=== PATIENT | male | born 1950 | race Caucasian/White ===

== ENCOUNTER → 2016-07-11 | Outpatient (CLI) | payer OTHER ==
[~2016-07-11] MED LIST: ALBU1AER9 INH; ALL180 PO; ASMTWH INH; ATOR10TA88 PO; BYS/5 PO; DABI150C PO; GABA-113 PO; GLUC1TAB44 PO; MONT1TAB3 PO; PRT/20 PO
== END | disposition home or self-care (01) ==
LOC: C.RDSM 12:33
PROVIDERS: ATTEND Physical Medicine & Rehabilitation Sports Medicine
DX: M25.562 Pain in left knee (principal)

== ENCOUNTER → 2016-08-01 | Outpatient (CLI) | payer OTHER | END | disposition home or self-care (01) | LOC: C.RDSM 08:20 | PROVIDERS: ATTEND Physical Medicine & Rehabilitation Sports Medicine | DX: T84.84XA Pain due to internal orthopedic prosthetic devices, implants and grafts, initial encounter (principal); Z96.649 Presence of unspecified artificial hip joint; Y79.2 Prosthetic and other implants, materials and accessory orthopedic devices associated with adverse incidents ==

== ENCOUNTER → 2017-05-01 | Outpatient (CLI) | payer OTHER ==
[~2017-05-01] MED LIST changes: +ATOR10TA82 PO; -ATOR10TA88 PO
--- NOTE | 2017-05-01 16:23 | DIAGNOSTIC IMAGING REPORT ---
CHEST 2 VIEWS ROUTINE HISTORY: 67 years-old Male ASTHMA acute asthma and cough for 6 weeks COMPARISON: Chest radiograph 03/28/2006 TECHNIQUE: PA and lateral views of the chest FINDINGS: Cardiomediastinal and hilar silhouettes are within normal limits. There is no pneumothorax or pleural effusion. Alveolar opacities of the medial basal right lower lobe are noted. The bones appear grossly intact. There are degenerative changes of the spine and shoulders. IMPRESSION: Alveolar opacities of the medial basal right lower lobe suggest pneumonia in the appropriate clinical setting. Follow-up recommended. The above report was generated using voice recognition software. It may contain grammatical, syntax or spelling errors. Electronically signed by: Brayan Velez M.D. 05/01/2017 4:22 PM Dictated Date/Time: 05/01/2017 4:20 PM
== END | disposition home or self-care (01) ==
LOC: C.RAD1850 16:06
PROVIDERS: ATTEND Family Medicine
DX: J45.909 Unspecified asthma, uncomplicated (principal); R05 Cough; R91.8 Other nonspecific abnormal finding of lung field

== ENCOUNTER → 2017-07-10 | Outpatient (CLI) | payer OTHER | END | disposition home or self-care (01) | LOC: C.RDSM 12:05 | PROVIDERS: ATTEND Physical Medicine & Rehabilitation Sports Medicine | DX: Z96.651 Presence of right artificial knee joint (principal) ==

== ENCOUNTER 2020-11-09 17:38 | Inpatient (IN) ==
--- NOTE | 2020-11-09 17:58 | CT Scan Report ---
CT SCAN OF THE BRAIN WITHOUT IV CONTRAST CLINICAL HISTORY: Strokelike symptoms. COMPARISON STUDY: CT of the brain dated 05/02/2012. TECHNIQUE: Unenhanced axial CT scan of the brain is performed from the vertex to the skull base. A d ose lowering technique was utilized adhering to the principles of ALARA. CT DOSE: 994.86 mGycm FINDINGS: Brain parenchyma: There is mild age-related involutional change. A small focus of high right frontopa rietal encephalomalacia is consistent with a remote insult. There is no hemorrhage, mass effect, or e vidence of acute territorial ischemia by CT criteria. Soto-white matter differentiation is preserved. No extra-axial fluid collection is seen. Ventricles, sulci, cisterns: Prominent secondary to involutional change. Intracranial vasculature: There is mild atherosclerotic calcification of the cavernous carotid arteri es. Calvarium: Unremarkable. Sinuses and mastoids: There is evidence of previous paranasal sinus surgery. There is complete opacif ication of the left sphenoid sinus, with moderate mucosal thickening in the right sphenoid sinus. Thi ckening and sclerosis of the sinus hoffman indicates chronicity. There is mild mucosal thickening withi n the ethmoid resection cavities, the frontal sinuses, and the maxillary antra. The mastoid air cells are well pneumatized. Orbits: The bony orbits are grossly intact. IMPRESSION: There is no hemorrhage, mass effect, or evidence of acute territorial ischemia by CT liban vazquez. ACT 112: Negative or not required by law. Electronically signed by: Gamaliel Friedman M.D. 11/09/2020 5:56 PM
[2020-11-09 18:05] LABS: Hematocrit (blood only) 44.4 % (42-52); Hemoglobin 15.2 g/dL (14.0-18.0); Mean Corpuscular Hemoglobin 30.3 pg (25-34); Mean Corpuscular Hgb Conc 34.2 g/dL (32-36); Mean Corpuscular Volume 88.4 fL (80-100); Mean Platelet Volume 10.9 fL (7.4-10.4); Platelet Count 176 K/uL (130-400); RDW Coefficient of Variation 13.4 % (11.5-14.5); RDW Standard Deviation 43.2 fL (36.4-46.3); Red Blood Count 5.02 M/uL (4.7-6.1); White Blood Count 8.68 K/uL (4.8-10.8)
--- NOTE | 2020-11-09 18:14 | XRay Report ---
SINGLE VIEW CHEST CLINICAL HISTORY: Strokelike symptoms. Visual changes. FINDINGS: An AP, portable, upright chest radiograph is compared to study dated 05/28/2019. The cardio mediastinal heart is mildly enlarged. There is pulmonary vascular congestion. No airspace consolidati on or large pleural effusion is identified. No pneumothorax is seen. The bony thorax is grossly intac t. IMPRESSION: 1. Cardiomegaly with mild pulmonary vascular congestion. 2. No airspace consolidation or large pleural effusion is identified. ACT 112: Negative or not required by law. Electronically signed by: Gamaliel Friedman M.D. 11/09/2020 6:13 PM
--- NOTE | 2020-11-09 18:14 | Emergency Department Note ---
Impression & Plan Hemianopsia, Atrial fibrillation, Bradycardia, Stroke ED Provider Note Provider: Mp Valdez MD DATE OF SERVICE: 11/09/2020 CHIEF COMPLAINT: Visual changes HISTORY OF PRESENT ILLNESS: Patient is a 70-year-old gentleman with a history of atrial fibrillation status post ablation on epigastrium as well as hypertension presenting here today stating around 5:10 PM this evening at the sudden onset of right-sided visual loss in both eyes. Denies any headache or dizziness. Denies any numbness or weakness in the extremities. Denies any difficulty speaking or aphasia type symptoms. Patient states she is a history distantly several years ago of somewhat similar TIA that was very brief and resolved. States he has been taking his anticoagulation, Pradaxa, and last took it this morning he reports. States he noticed this visual change immediately and came here to the ER. Was made a stroke alert from triage. Denies any falls or trauma. Denies any chest pain shortness of breath or abdominal discomfort. Patient is not on aspirin. REVIEW OF SYSTEMS: A total of 10 review of systems was obtained and negative except as stated above in the HPI. PAST MEDICAL HISTORY: As noted above MEDICATIONS: Reviewed home medication list SOCIAL HISTORY: and lives at home PHYSICAL EXAM: GENERAL: alert and oriented in no acute distress on stretcher Head: normocephalic and atraumatic EYES: No injection, discharge or icterus. PERRL, EOMI. Patient with right hemianopsia (includes both upper and lower right-sided leon in both eyes) NECK: Trachea midline. Supple. ENT: Mucous membranes pink and moist. Pharynx without erythema or exudate. LUNGS: Airway patent. No retractions. Breath sounds clear with good air entry bilaterally. HEART: Regular rate and rhythm. No chest wall tenderness ABDOMEN: Soft and non-tender, without guarding or rebound. SKIN: Acyanotic, warm, dry, without rashes EXTREMITIES: Without swelling, tenderness or deformity NEUROLOGICAL: No focal deficits. No aphasia. No facial droop or slurred speech. Normal strength and tone in the extremities. Sensation to gross touch normal. Ambulatory. Right-sided visual loss in both eyes as above EK bpm atrial fibrillation with slow ventricular response. No acute ST segment elevation noted with lateral T wave inversions. QTc 436. Similar to previous from December 05, 2019 although appears more fibrillation today than flutter. CONTINUOUS CARDIAC MONITORING: was ordered and showed a heart rate of 30s to 40s bpm in atrial fibrillation with slow ventricular response Patient's laboratory studies and imaging reviewed. Differential includes Infection, dehydration, metabolic abnormality, hypo/hyperglycemia, electrolyte disturbance, anemia, hypoxia, cardiac sources, intracerebral event, toxicologic, neurologic, as well as other pathologies. IMPRESSION/MEDICAL DECISION MAKING: Patient with sudden onset of bilateral right-sided visual loss. No other significant findings. Do not believe is ophthalmologic less that involves both eyes. Extraocular motions appear intact. Not having aphasia. Patient is on anticoagulation with Pradaxa thus contraindicated to TPA. CTA will complete and look for a large vessel occlusion but I doubt given his exam at this time an LVO. Patient with no other significant findings in the upper or lower extremities. EKG shows bradycardic rate controlled A. fib which he states is normal for him and EKG without significant acute ischemic changes compared to previous. Patient denies any chest pain or shortness of breath. Blood work without significant abnormalities beyond a mildly elevated troponin but again the patient is not having active chest pain. Patient is hypertensive here likely related to probable stroke. Question of the troponin is chronically elevated but did not have recent baseline for comparison. CTA with 50% ICA stenosis but no other significant findings. Question of possible embolic finding from his history of A. fib although he has been on Pradaxa. Discussed with the patient and family members further observation here at the hospital and they are in agreement. The hospitalist was contacted. Discussed with Dr. Santos at [facility] and given an oral dose of aspirin for antiplatelet coverage. DIAGNOSIS: Hemianopsia, stroke, bradycardia, atrial fibrillation DISPOSITION: Hospitalist will evaluate Patient was agreeable with this plan. Past Med/Surg History Medical History (Updated 11/10/20 @ 01:31 by Mp Valdez M.D.) Asthma Atrial fibrillation Chronic back pain GERD (gastroesophageal reflux disease) History of cardioversion "SEVERAL" (FOLLOWS WITH DR. SHAW) Hyperlipidemia Hypertension Osteoarthritis Transient ischemic attack (TIA) 2009 Surgical History History of adenoidectomy History of cardiac radiofrequency ablation X 4 (LAST PROCEDURE AT [facility] 2009) History of colonoscopy History of endoscopic sinus surgery X 2 History of nasal septoplasty History of tonsillectomy History of tooth extraction History of total hip arthroplasty LEFT History of total knee replacement RT Family History Other No significant family history Social History Smoking Status: Never smoker Second Hand Exposure: No; Hx Alcohol Use: Yes Alcohol type: wine Hx Substance Use: No Preferred Language: Armenian Communication Ability: Effective Watch Assembly Instructor Required: No Beliefs That Will Affect Care: None Current Living Situation: Spouse Other Information That Helps Us Care for You: No Feels Safe at Home: Yes Safety Concerns: Feels Safe At This Time Assistive Devices: Hearing Aid - Bilateral Allergies Allergies Allergy/AdvReac Type Severity Reaction Status Date / Time No Known Allergies Allergy Verified 11/09/20 18:29 Home Meds Home Medications Medication Instructions Recorded Confirmed albuterol sulfate [ProAir HFA] 2 puff INHALATION QID PRN 12/25/18 11/09/20 atorvastatin [Lipitor] 10 mg PO HS 12/25/18 11/09/20 fexofenadine 180 mg PO QAM 12/25/18 11/09/20 Cbd Gummy 1 tab PO BID 02/20/20 11/09/20 amlodipine 2.5 mg PO DAILY 11/09/20 11/09/20 fluticasone propion-salmeterol 1 ea INHALATION UD PRN 11/09/20 11/09/20 [Advair Diskus] lisinopril 40 mg PO DAILY 11/09/20 11/09/20 Previous Rx's Medication Instructions Recorded dabigatran etexilate 150 mg capsule 150 mg PO BID #180 cap 12/12/19 Results & Data (ED) Vital Signs Vital Signs - 24 hr 11/09/20 17:40 11/09/20 18:00 11/09/20 18:02 Temperature 36.6 C Temperature Source Temporal Artery Scan Pulse Rate 43 L 40 L 41 L Pulse Rate from SpO2 Sensor Respiratory Rate 16 18 19 Respiratory Effort / Characteristics Non-Labored Respiratory Depth Normal Blood Pressure 195/85 H Blood Pressure Mean 121 Pulse Oximetry 97 100 Oxygen Delivery Method Room Air Room Air Sepsis Recent Fever Within 48 Hours No Sepsis New/Unexplained Change in Mental Status No Sepsis Action Taken by Nursing No Action Required 11/09/20 18:04 11/09/20 18:15 11/09/20 18:30 Temperature Temperature Source Pulse Rate 43 L 34 L 40 L Pulse Rate from SpO2 Sensor Respiratory Rate 17 18 16 Respiratory Effort / Characteristics Respiratory Depth Blood Pressure 174/95 H 183/86 H 171/82 H Blood Pressure Mean 121 118 111 Pulse Oximetry 96 96 Oxygen Delivery Method Sepsis Recent Fever Within 48 Hours Sepsis New/Unexplained Change in Mental Status Sepsis Action Taken by Nursing 11/09/20 18:47 11/09/20 19:00 11/09/20 19:01 Temperature Temperature Source Pulse Rate 44 L 42 L 40 L Pulse Rate from SpO2 Sensor 45 L 42 L 39 L Respiratory Rate 17 21 19 Respiratory Effort / Characteristics Respiratory Depth Blood Pressure 175/92 H 187/103 H Blood Pressure Mean 119 131 Pulse Oximetry 97 98 98 Oxygen Delivery Method Sepsis Recent Fever Within 48 Hours Sepsis New/Unexplained Change in Mental Status Sepsis Action Taken by Nursing 11/09/20 19:42 11/09/20 19:47 11/09/20 20:00 Temperature Temperature Source Pulse Rate 40 L 41 L 39 L Pulse Rate from SpO2 Sensor 41 L 43 L 40 L Respiratory Rate 14 17 20 Respiratory Effort / Characteristics Respiratory Depth Blood Pressure 190/117 H Blood Pressure Mean 141 Pulse Oximetry 99 98 98 Oxygen Delivery Method Sepsis Recent Fever Within 48 Hours Sepsis New/Unexplained Change in Mental Status Sepsis Action Taken by Nursing 11/09/20 20:12 11/09/20 20:14 11/09/20 20:16 Temperature Temperature Source Pulse Rate 40 L 46 L 47 L Pulse Rate from SpO2 Sensor 41 L 45 L 43 L Respiratory Rate 20 18 20 Respiratory Effort / Characteristics Respiratory Depth Blood Pressure 189/101 H 199/89 H 190/92 H Blood Pressure Mean 130 125 124 Pulse Oximetry 99 97 97 Oxygen Delivery Method Sepsis Recent Fever Within 48 Hours Sepsis New/Unexplained Change in Mental Status Sepsis Action Taken by Nursing 11/09/20 20:30 11/09/20 20:31 11/09/20 20:42 Temperature Temperature Source Pulse Rate 38 L 39 L 40 L Pulse Rate from SpO2 Sensor 41 L 40 L 43 L Respiratory Rate 13 20 17 Respiratory Effort / Characteristics Respiratory Depth Blood Pressure 200/90 H 181/93 H Blood Pressure Mean 126 122 Pulse Oximetry 96 97 98 Oxygen Delivery Method Sepsis Recent Fever Within 48 Hours Sepsis New/Unexplained Change in Mental Status Sepsis Action Taken by Nursing Laboratory Data Result diagrams: 11/09/20 17:58 11/09/20 17:58 Lab Results 11/09/20 11/09/20 11/09/20 Range/Units 17:57 17:58 17:58 WBC 8.68 (4.8-10.8) K/uL RBC 5.02 (4.7-6.1) M/uL Hgb 15.2 (14.0-18.0) g/dL Hct 44.4 (42-52) % MCV 88.4 (80-100) fL MCH 30.3 (25-34) pg MCHC 34.2 (32-36) g/dL RDW Std Deviation 43.2 (36.4-46.3) fL RDW Coeff of Castro 13.4 (11.5-14.5) % Plt Count 176 (130-400) K/uL MPV 10.9 H (7.4-10.4) fL PT 11.1 (9.0-12.0) Seconds INR 1.1 (0.9-1.1) APTT 36.5 H (21.0-31.0) Seconds PTT Ratio 1.4 Sodium (136-145) mmol/L Potassium (3.5-5.1) mmol/L Chloride (98-107) mmol/L Carbon Dioxide (21-32) mmol/L Anion Gap (3-11) BUN (7-18) mg/dl Creatinine (0.6-1.4) mg/dl Est Cr Clr Drug Dosing ml/min Est GFR ( Amer) ml/min Est GFR (Non-Af Amer) ml/min BUN/Creatinine Ratio (10-20) Glucose (70-99) mg/dl POC Glucose 96 (70-99) mg/dl Calcium (8.5-10.1) mg/dl Magnesium (1.8-2.4) mg/dl Total Bilirubin (0.2-1) mg/dl AST (15-37) U/L ALT (12-78) U/L Alkaline Phosphatase (45-117) U/L Total Protein (6.4-8.2) gm/dl Albumin (3.4-5.0) gm/dl Globulin (2.5-4.0) gm/dl Albumin/Globulin Ratio (0.9-2) COVID-19 Eval Order SARS-CoV-2 (PCR) (Negative) 11/09/20 11/09/20 11/09/20 Range/Units 17:58 18:18 18:18 WBC (4.8-10.8) K/uL RBC (4.7-6.1) M/uL Hgb (14.0-18.0) g/dL Hct (42-52) % MCV (80-100) fL MCH (25-34) pg MCHC (32-36) g/dL RDW Std Deviation (36.4-46.3) fL RDW Coeff of Castro (11.5-14.5) % Plt Count (130-400) K/uL MPV (7.4-10.4) fL PT (9.0-12.0) Seconds INR (0.9-1.1) APTT (21.0-31.0) Seconds PTT Ratio Sodium 141 (136-145) mmol/L Potassium 4.1 (3.5-5.1) mmol/L Chloride 109 H (98-107) mmol/L Carbon Dioxide 26 (21-32) mmol/L Anion Gap 6.0 (3-11) BUN 18 (7-18) mg/dl Creatinine 1.09 (0.6-1.4) mg/dl Est Cr Clr Drug Dosing 76.0 ml/min Est GFR ( Amer) 79.8 ml/min Est GFR (Non-Af Amer) 68.9 ml/min BUN/Creatinine Ratio 16.7 (10-20) Glucose 85 (70-99) mg/dl POC Glucose (70-99) mg/dl Calcium 8.6 (8.5-10.1) mg/dl Magnesium 2.4 (1.8-2.4) mg/dl Total Bilirubin 1.1 H (0.2-1) mg/dl AST 32 (15-37) U/L ALT 39 (12-78) U/L Alkaline Phosphatase 112 (45-117) U/L Total Protein 7.5 (6.4-8.2) gm/dl Albumin 3.8 (3.4-5.0) gm/dl Globulin 3.7 (2.5-4.0) gm/dl Albumin/Globulin Ratio 1.0 (0.9-2) COVID-19 Eval Order Covid19 at [facility] SARS-CoV-2 (PCR) NEGATIVE (Negative) Administered Medications Atorvastatin Calcium (Atorvastatin 40 Mg Tab) 80 mg PO HS FLEX Stop: 12/09/20 23:02 Last Admin: 11/09/20 23:47 Dose: 80 mg Documented by: [id number] Discontinued Medications Aspirin (Aspirin 81 Mg Chew) 324 mg PO NOW STA Stop: 11/09/20 18:56 Last Admin: 11/09/20 19:07 Dose: 324 mg Documented by: [id number] Ioversol (Optiray 350 500ml) 110 ml IV ONCE ONE Stop: 11/09/20 19:35 Last Admin: 11/09/20 19:34 Dose: 110 ml Documented by: [id number] Imaging Data Radiologist's Impression: Chest X-Ray 11/09/20 17:44 SINGLE VIEW CHEST CLINICAL HISTORY: Strokelike symptoms. Visual changes. FINDINGS: An AP, portable, upright chest radiograph is compared to study dated 05/28/2019. The cardiomediastinal heart is mildly enlarged. There is pulmonary vascular congestion. No airspace consolidation or large pleural effusion is identified. No pneumothorax is seen. The bony thorax is grossly intact. IMPRESSION: 1. Cardiomegaly with mild pulmonary vascular congestion. 2. No airspace consolidation or large pleural effusion is identified. ACT 112: Negative or not required by law. Electronically signed by: Gamaliel Friedman M.D. 11/09/2020 6:[address] 11/09/20 17:44 CT SCAN OF THE BRAIN WITHOUT IV CONTRAST CLINICAL HISTORY: Strokelike symptoms. COMPARISON STUDY: CT of the brain dated 05/02/2012. TECHNIQUE: Unenhanced axial CT scan of the brain is performed from the vertex to the skull base. A dose lowering technique was utilized adhering to the principles of ALARA. CT DOSE: 994.86 mGycm FINDINGS: Brain parenchyma: There is mild age-related involutional change. A small focus of high right frontoparietal encephalomalacia is consistent with a remote insult. There is no hemorrhage, mass effect, or evidence of acute territorial ischemia by CT criteria. Soto-white matter differentiation is preserved. No extra-axial fluid collection is seen. Ventricles, sulci, cisterns: Prominent secondary to involutional change. Intracranial vasculature: There is mild atherosclerotic calcification of the cavernous carotid arteries. Calvarium: Unremarkable. Sinuses and mastoids: There is evidence of previous paranasal sinus surgery. There is complete opacification of the left sphenoid sinus, with moderate mucosal thickening in the right sphenoid sinus. Thickening and sclerosis of the sinus hoffman indicates chronicity. There is mild mucosal thickening within the ethmoid resection cavities, the frontal sinuses, and the maxillary antra. The mastoid air cells are well pneumatized. Orbits: The bony orbits are grossly intact. IMPRESSION: There is no hemorrhage, mass effect, or evidence of acute territorial ischemia by CT criteria. ACT 112: Negative or not required by law. Electronically signed by: Gamaliel Friedman M.D. 11/09/2020 5:56 PM Head CTA 11/09/20 18:01 CT ANGIOGRAM OF THE BRAIN; CT ANGIOGRAM OF THE NECK CLINICAL HISTORY: Right-sided visual field loss. COMPARISON STUDY: Unenhanced CT of the brain performed the same day 11/09/2020. TECHNIQUE: Following the IV administration of 110 of Optiray 350, CT angiogram of the head and neck was performed from the aortic arch to the vertex. Images are reviewed in the axial, sagittal, and coronal planes. 3-D MIPS images are created and assessed. IV contrast was administered without complication. All measurements were calculated based on NASCET criteria. A dose lowering technique was utilized adhering to the principles of ALARA. CT DOSE: 630.23 mGy.cm FINDINGS: Brain parenchyma: There is age-related involutional change. A small focus of high right frontoparietal encephalomalacia is consistent with a remote insult. There is no hemorrhage, mass effect, or evidence of acute territorial ischemia by CT criteria. There is no evidence of enhancing mass lesion on the angiogram phase images. The ventricles, sulci, and cisterns are prominent secondary to involutional change. Soto-white matter differentiation is preserved. No extra- axial fluid collection is seen. Thoracic aorta: Visualized portions of the thoracic aorta are normal in caliber. The aortic arch demonstrates standard 3-vessel anatomy. Right carotid arterial system: The right common carotid artery is widely patent, as are the right internal and Carotid arteries. Atherosclerotic plaque is noted in the carotid bulb. Left carotid arterial system: The left common carotid artery is widely patent. Plaque in the carotid bulb causes less than 50% stenosis at the origin of the left internal carotid artery. There is atherosclerotic irregularity throughout the left internal carotid artery which is otherwise widely patent. The left external carotid artery is clear. Vertebral arteries: The vertebral arteries are widely patent and codominant. Subclavian arteries: Widely patent bilaterally. Intracranial vasculature: The internal carotid arteries are patent at the skull base, as are the anterior and middle cerebral arteries bilaterally. The vertebrobasilar system and posterior cerebral arteries are widely patent. The vertebral arteries are codominant. There is no aneurysm, high-grade stenosis, or focal vessel cut off seen throughout the intracranial circulation. Jugular veins: Patent bilaterally. Dural sinuses: Patent. Lung apices: Partially visualized upper lobe lung parenchyma appears clear. Soft tissues: The visualized pharyngeal soft tissues are normal in appearance noting angiographic phase technique. The oropharyngeal airway appears widely patent. The salivary and thyroid glands are normal in appearance. No cervical lymphadenopathy is seen. Skeletal structures: The skeletal structures are osteopenic. The calvarium appears intact. The cervical spine is maintained noting multilevel spondylosis. No lytic or blastic lesion is seen. Orbits: The bony orbits are intact. Orbital contents are normal as visualized. Sinuses and mastoids: There is evidence of previous paranasal sinus surgery. There is complete opacification of the left sphenoid sinus, with moderate mucosal thickening in the right sphenoid sinus. Thickening and sclerosis of the sinus hoffman indicates chronicity. There is mild mucosal thickening within the ethmoid resection cavities, the frontal sinuses, and the maxillary antra. The mastoid air cells are well pneumatized. IMPRESSION: 1. There is no evidence of hemorrhage, mass effect, or acute territorial ischemia by CT criteria noting angiographic phase technique. 2. Unremarkable CT angiogram of the brain. 3. Atherosclerotic plaque causes less than 50% stenosis at the origin of the left internal carotid artery. 4. Otherwise unremarkable CT angiogram of the neck. ACT 112: Negative or not required by law. Electronically signed by: Gamaliel Friedman M.D. 11/09/2020 8:02 PM Neck CTA 11/09/20 18:01 CT ANGIOGRAM OF THE BRAIN; CT ANGIOGRAM OF THE NECK CLINICAL HISTORY: Right-sided visual field loss. COMPARISON STUDY: Unenhanced CT of the brain performed the same day 11/09/2020. TECHNIQUE: Following the IV administration of 110 of Optiray 350, CT angiogram of the head and neck was performed from the aortic arch to the vertex. Images are reviewed in the axial, sagittal, and coronal planes. 3-D MIPS images are created and assessed. IV contrast was administered without complication. All measurements were calculated based on NASCET criteria. A dose lowering technique was utilized adhering to the principles of ALARA. CT DOSE: 630.23 mGy.cm FINDINGS: Brain parenchyma: There is age-related involutional change. A small focus of high right frontoparietal encephalomalacia is consistent with a remote insult. There is no hemorrhage, mass effect, or evidence of acute territorial ischemia by CT criteria. There is no evidence of enhancing mass lesion on the angiogram phase images. The ventricles, sulci, and cisterns are prominent secondary to involutional change. Soto-white matter differentiation is preserved. No extra- axial fluid collection is seen. Thoracic aorta: Visualized portions of the thoracic aorta are normal in caliber. The aortic arch demonstrates standard 3-vessel anatomy. Right carotid arterial system: The right common carotid artery is widely patent, as are the right internal and Carotid arteries. Atherosclerotic plaque is noted in the carotid bulb. Left carotid arterial system: The left common carotid artery is widely patent. Plaque in the carotid bulb causes less than 50% stenosis at the origin of the left internal carotid artery. There is atherosclerotic irregularity throughout the left internal carotid artery which is otherwise widely patent. The left external carotid artery is clear. Vertebral arteries: The vertebral arteries are widely patent and codominant. Subclavian arteries: Widely patent bilaterally. Intracranial vasculature: The internal carotid arteries are patent at the skull base, as are the anterior and middle cerebral arteries bilaterally. The vertebrobasilar system and posterior cerebral arteries are widely patent. The vertebral arteries are codominant. There is no aneurysm, high-grade stenosis, or focal vessel cut off seen throughout the intracranial circulation. Jugular veins: Patent bilaterally. Dural sinuses: Patent. Lung apices: Partially visualized upper lobe lung parenchyma appears clear. Soft tissues: The visualized pharyngeal soft tissues are normal in appearance noting angiographic phase technique. The oropharyngeal airway appears widely patent. The salivary and thyroid glands are normal in appearance. No cervical l ymphadenopathy is seen. Skeletal structures: The skeletal structures are osteopenic. The calvarium appears intact. The cervical spine is maintained noting multilevel spondylosis. No lytic or blastic lesion is seen. Orbits: The bony orbits are intact. Orbital contents are normal as visualized. Sinuses and mastoids: There is evidence of previous paranasal sinus surgery. There is complete opacification of the left sphenoid sinus, with moderate mucosal thickening in the right sphenoid sinus. Thickening and sclerosis of the sinus hoffman indicates chronicity. There is mild mucosal thickening within the ethmoid resection cavities, the frontal sinuses, and the maxillary antra. The mastoid air cells are well pneumatized. IMPRESSION: 1. There is no evidence of hemorrhage, mass effect, or acute territorial ischemia by CT criteria noting angiographic phase technique. 2. Unremarkable CT angiogram of the brain. 3. Atherosclerotic plaque causes less than 50% stenosis at the origin of the left internal carotid artery. 4. Otherwise unremarkable CT angiogram of the neck. ACT 112: Negative or not required by law. Electronically signed by: Gamaliel Friedman M.D. 11/09/2020 8:02 PM Discharge Plan Visit Data Chief Complaint: Visual Disturbance Stated Complaint: CAN'T SEE R SIDE VISION, NAUSEA ED Provider: Mp Valdez Discharge Problem: Hemianopsia, Atrial fibrillation, Bradycardia, Stroke Patient Disposition: Admitted As Inpatient Discharge Instructions Interventions: ED Discharge Assessment Last Done: 11/09/20 22:20 Discharge Problem: Atrial fibrillation Qualifiers: Atrial fibrillation type: unspecified chronic Qualified Code(s): I48.20 - Chronic atrial fibrillation, unspecified Stroke Qualifiers: CVA mechanism: unspecified Qualified Code(s): I63.9 - Cerebral infarction, unspecified
[2020-11-09 18:19] LABS: INR 1.1 (0.9-1.1); Partial Thromboplastin Ratio 1.4; Partial Thromboplastin Time 36.5 Seconds (21.0-31.0); Prothrombin Time 11.1 Seconds (9.0-12.0)
[2020-11-09 18:48] LABS: Albumin Level 3.8 gm/dl (3.4-5.0); BUN Creatinine Ratio 16.7 (10-20); Calcium 8.6 mg/dl (8.5-10.1); Est GFR (African American) 79.8 ml/min; Est GFR (Non-African American) 68.9 ml/min; Magnesium 2.4 mg/dl (1.8-2.4); Potassium 4.1 mmol/L (3.5-5.1)
[2020-11-09 18:51] LABS: Bilirubin,Total 1.1 mg/dl (0.2-1); Globulin 3.7 gm/dl (2.5-4.0); Total Protein 7.5 gm/dl (6.4-8.2)
[2020-11-09] MEDS ORDERED: ASPIRIN 81 MG CHEW PO STA (18:55)
[2020-11-09] MEDS ORDERED: OPTIRAY 350 500ml IV ONE (19:34)
--- NOTE | 2020-11-09 20:04 | CT Scan Report ---
CT ANGIOGRAM OF THE BRAIN; CT ANGIOGRAM OF THE NECK CLINICAL HISTORY: Right-sided visual field loss. COMPARISON STUDY: Unenhanced CT of the brain performed the same day 11/09/2020. TECHNIQUE: Following the IV administration of 110 of Optiray 350, CT angiogram of the head and neck w as performed from the aortic arch to the vertex. Images are reviewed in the axial, sagittal, and en nal planes. 3-D MIPS images are created and assessed. IV contrast was administered without complicati on. All measurements were calculated based on NASCET criteria. A dose lowering technique was utilize d adhering to the principles of ALARA. CT DOSE: 630.23 mGy.cm FINDINGS: Brain parenchyma: There is age-related involutional change. A small focus of high right frontoparieta l encephalomalacia is consistent with a remote insult. There is no hemorrhage, mass effect, or eviden ce of acute territorial ischemia by CT criteria. There is no evidence of enhancing mass lesion on the angiogram phase images. The ventricles, sulci, and cisterns are prominent secondary to involutional change. Soto-white matter differentiation is preserved. No extra-axial fluid collection is seen. Thoracic aorta: Visualized portions of the thoracic aorta are normal in caliber. The aortic arch demo nstrates standard 3-vessel anatomy. Right carotid arterial system: The right common carotid artery is widely patent, as are the right int ernal and Carotid arteries. Atherosclerotic plaque is noted in the carotid bulb. Left carotid arterial system: The left common carotid artery is widely patent. Plaque in the carotid bulb causes less than 50% stenosis at the origin of the left internal carotid artery. There is athero sclerotic irregularity throughout the left internal carotid artery which is otherwise widely patent. The left external carotid artery is clear. Vertebral arteries: The vertebral arteries are widely patent and codominant. Subclavian arteries: Widely patent bilaterally. Intracranial vasculature: The internal carotid arteries are patent at the skull base, as are the ante rior and middle cerebral arteries bilaterally. The vertebrobasilar system and posterior cerebral nadeem magdalene are widely patent. The vertebral arteries are codominant. There is no aneurysm, high-grade steno sis, or focal vessel cut off seen throughout the intracranial circulation. Jugular veins: Patent bilaterally. Dural sinuses: Patent. Lung apices: Partially visualized upper lobe lung parenchyma appears clear. Soft tissues: The visualized pharyngeal soft tissues are normal in appearance noting angiographic pha se technique. The oropharyngeal airway appears widely patent. The salivary and thyroid glands are nor mal in appearance. No cervical lymphadenopathy is seen. Skeletal structures: The skeletal structures are osteopenic. The calvarium appears intact. The cervic al spine is maintained noting multilevel spondylosis. No lytic or blastic lesion is seen. Orbits: The bony orbits are intact. Orbital contents are normal as visualized. Sinuses and mastoids: There is evidence of previous paranasal sinus surgery. There is complete opacif ication of the left sphenoid sinus, with moderate mucosal thickening in the right sphenoid sinus. Thi ckening and sclerosis of the sinus hoffman indicates chronicity. There is mild mucosal thickening withi n the ethmoid resection cavities, the frontal sinuses, and the maxillary antra. The mastoid air cells are well pneumatized. IMPRESSION: 1. There is no evidence of hemorrhage, mass effect, or acute territorial ischemia by CT criteria noti ng angiographic phase technique. 2. Unremarkable CT angiogram of the brain. 3. Atherosclerotic plaque causes less than 50% stenosis at the origin of the left internal carotid ar ute. 4. Otherwise unremarkable CT angiogram of the neck. ACT 112: Negative or not required by law. Electronically signed by: Gamaliel Friedman M.D. 11/09/2020 8:02 PM
[2020-11-09] MEDS ORDERED: ACETAMINOPHEN 325 MG TAB PO PRN (23:03)
[2020-11-09] MEDS ORDERED: PHARMACIST DISCHARGE MED REC CONSULT PRN (23:03)
[2020-11-09] MEDS ORDERED: ATORVASTATIN 40 MG TAB PO SCH (23:03)
[2020-11-09] MEDS ORDERED: ONDANSETRON INJ 2 MG/ML 2 ML VIAL IV PRN (23:03)
--- NOTE | 2020-11-09 23:23 | History & Physical Report ---
Date of Service November 09, 2020 Assessment & Plan (1) Right homonymous hemianopsia due to recent cerebral infarction: Right homonymous hemianopsia/3.2 x 2.0 cm acute infarct left occipital lobe- Stroke without TPA protocol order set Consult PT/OT/speech/neurology Present on Admission?: Yes (2) Stroke: See above Present on Admission?: Yes (3) Atrial flutter: Atrial flutter/atrial fibrillation/hypertension- The patient will be admitted to telemetry for serial cardiac enzymes, serial EKG's, cardiac rhythm monitoring and a 2-D echocardiogram with Dopplers. EKG shows atrial flutter with high degree block//resultant bradycardia- Patient's heart rate and EKG not different from previously noted Discontinue Pradaxa. Place on heparin IV low-dose protocol without bolus Continue amlodipine and lisinopril Consult his [employer] police Dr. Lerner Present on Admission?: Yes (4) Bradycardia: See above Present on Admission?: Yes (5) Hypertension: See above Present on Admission?: Yes (6) Asthma: Continue Advair Diskus Present on Admission?: Yes (7) History of cardioversion: History of multiple cardioversions with Dr. Fonseca Present on Admission?: Yes (8) Hyperlipidemia: Increase atorvastatin from 10 to 80 mg daily check a fasting lipid panel and hemoglobin A1c Present on Admission?: Yes Admission and Anticipated Discharge Date Admission Date: November 09, 2020 History of Present Illness Chief Complaint: The patient presents to the emergency department with complaint of acute onset of right-sided visual field loss in both eyes. Primary Care Provider: Salvador Salinas The patient is a 70-year-old male with a past medical history including atrial fibrillation, hypertension, hyperlipidemia, allergic rhinitis, asthma, chronic anticoagulation on dabigatran, who presents to the emergency department with acute onset of right-sided visual field loss bilaterally. He reports that he had been out playing golf for the better part of the day, and after coming home, developed acute onset of the symptoms. He denies any associated issue with swallowing or speaking, right-sided or left-sided weakness or change in sensation. He was made a stroke alert in triage. Imaging studies: CT head without contrast negative, CTA of head and neck negative except for LICA stenosis of less than 50%. EKG showed atrial flutter with block, and bradycardia at a rate of 40. Heart monitor in ED varied from the mid 30s to low 40s and rate. The patient was COVID-19 negative in the ED. Allergies Allergy/AdvReac Type Severity Reaction Status Date / Time No Known Allergies Allergy Verified 11/09/20 18:29 Home Medications Medication Instructions Recorded Confirmed Type albuterol sulfate [ProAir HFA] 2 puff INHALATION QID PRN 12/25/18 11/09/20 History atorvastatin [Lipitor] 10 mg PO HS 12/25/18 11/09/20 History fexofenadine 180 mg PO QAM 12/25/18 11/09/20 History dabigatran etexilate 150 mg capsule 150 mg PO BID #180 cap 12/12/19 11/09/20 Rx Cbd Gummy 1 tab PO BID 02/20/20 11/09/20 History amlodipine 2.5 mg PO DAILY 11/09/20 11/09/20 History fluticasone propion-salmeterol 1 ea INHALATION UD PRN 11/09/20 11/09/20 History [Advair Diskus] lisinopril 40 mg PO DAILY 11/09/20 11/09/20 History Past Med/Surg History Medical History (Updated 11/10/20 @ 03:57 by Harley Toro MD) Asthma Atrial fibrillation Chronic back pain GERD (gastroesophageal reflux disease) History of cardioversion "SEVERAL" (FOLLOWS WITH DR. SHAW) Hyperlipidemia Hypertension Osteoarthritis Transient ischemic attack (TIA) 2009 Surgical History History of adenoidectomy History of cardiac radiofrequency ablation X 4 (LAST PROCEDURE AT [facility] 2009) History of colonoscopy History of endoscopic sinus surgery X 2 History of nasal septoplasty History of tonsillectomy History of tooth extraction History of total hip arthroplasty LEFT History of total knee replacement RT Family History Other No significant family history Social History Smoking Status: Never smoker Second Hand Exposure: No; Hx Alcohol Use: Yes Alcohol type: wine Hx Substance Use: No Preferred Language: Barbadian Communication Ability: Effective Yoga Instructor Required: No Beliefs That Will Affect Care: None Current Living Situation: Spouse Other Information That Helps Us Care for You: No Feels Safe at Home: Yes Safety Concerns: Feels Safe At This Time Assistive Devices: Hearing Aid - Bilateral Review of Systems Review of Systems: The patient denies chest pain, palpitations, shortness of breath, dyspnea on exertion, cough, lower extremity swelling, sore throat, fevers, chills, sweats, nausea, vomiting, diarrhea , constipation, abdominal pain, pelvic pain, blood in urine or stool, dysuria, urinary frequency or urgency, lightheadedness, dizziness, headache, memory loss, loss of consciousness, rash, abnormal bruising or bleeding, imbalance, focal or generalized weakness, numbness or tingling in arms or legs, generalized arthralgias or myalgias, back or neck pain, or night sweats. The review of systems is otherwise negative other than for that already noted above, and at least 10 systems have been reviewed. Physical Exam Physical Exam: The patient is awake, alert and oriented 3, well developed and well nourished, normocephalic and atraumatic, lying in bed and in no acute distress. HEENT--PERRL, EOMI, mucous membranes and oropharynx normal. Neck--supple. No JVD. No bruits. Thyroid normal, trachea midline, no adenopathy. Heart--normal S1 and S2. No murmurs, rubs or gallops. Lungs--clear bilaterally, no respiratory distress, no accessory muscle use. Abdomen--normal bowel sounds and soft. Nontender. Nondistended. Extremities--no cyanosis or clubbing. No edema. Dermatologic--normal skin turgor, normal color, no abnormal lymph nodes, no nury h. Neurologic--cranial nerves II through XII grossly intact. Right side visual field loss noted bilaterally on confrontation leon Rheumatologic--normal range of motion. Psychiatric--normal affect. Results & Data Results & Data ([facility]) Vital Signs (Past 12 Hours) Vital Signs Temp Pulse Pulse Resp BP BP Pulse Ox 11/09/20 22:45 98.4 F 44 L 18 179/83 H 98 11/09/20 22:15 47 L 24 174/90 H 98 11/09/20 22:00 42 L 21 182/95 H 98 11/09/20 21:45 40 L 17 169/95 H 98 11/09/20 21:31 45 L 20 185/110 H 98 11/09/20 21:30 45 L 15 98 11/09/20 21:16 43 L 17 155/89 H 98 11/09/20 21:00 43 L 23 192/87 H 97 11/09/20 20:42 40 L 17 181/93 H 98 11/09/20 20:31 39 L 20 200/90 H 97 11/09/20 20:30 38 L 13 96 11/09/20 20:16 47 L 20 190/92 H 97 11/09/20 20:14 46 L 18 199/89 H 97 11/09/20 20:12 40 L 20 189/101 H 99 11/09/20 20:00 39 L 20 98 11/09/20 19:47 41 L 17 190/117 H 98 11/09/20 19:42 40 L 14 99 11/09/20 19:01 40 L 19 187/103 H 98 11/09/20 19:00 42 L 21 98 11/09/20 18:47 44 L 17 175/92 H 97 11/09/20 18:30 40 L 16 171/82 H 96 11/09/20 18:15 34 L 18 183/86 H 96 11/09/20 18:04 43 L 17 174/95 H 11/09/20 18:02 41 L 19 11/09/20 18:00 40 L 18 100 11/09/20 17:40 97.9 F 43 L 16 195/85 H 97 Laboratory Results Laboratory Results WBC 8.68 K/uL (4.8-10.8) 11/09/20 17:58 RBC 5.02 M/uL (4.7-6.1) 11/09/20 17:58 Hgb 15.2 g/dL (14.0-18.0) 11/09/20 17:58 Hct 44.4 % (42-52) 11/09/20 17:58 MCV 88.4 fL (80-100) 11/09/20 17:58 MCH 30.3 pg (25-34) 11/09/20 17:58 MCHC 34.2 g/dL (32-36) 11/09/20 17:58 RDW Std Deviation 43.2 fL (36.4-46.3) 11/09/20 17:58 RDW Coeff of Castro 13.4 % (11.5-14.5) 11/09/20 17:58 Plt Count 176 K/uL (130-400) 11/09/20 17:58 MPV 10.9 fL (7.4-10.4) H 11/09/20 17:58 PT 11.1 Seconds (9.0-12.0) 11/09/20 17:58 INR 1.1 (0.9-1.1) 11/09/20 17:58 APTT 36.5 Seconds (21.0-31.0) H 11/09/20 17:58 PTT Ratio 1.4 11/09/20 17:58 Sodium 141 mmol/L (136-145) 11/09/20 17:58 Potassium 4.1 mmol/L (3.5-5.1) 11/09/20 17:58 Chloride 109 mmol/L (98-107) H 11/09/20 17:58 Carbon Dioxide 26 mmol/L (21-32) 11/09/20 17:58 Anion Gap 6.0 (3-11) 11/09/20 17:58 BUN 18 mg/dl (7-18) 11/09/20 17:58 Creatinine 1.09 mg/dl (0.6-1.4) 11/09/20 17:58 Est Cr Clr Drug Dosing 76.0 ml/min 11/09/20 17:58 Est GFR ( Amer) 79.8 ml/min 11/09/20 17:58 Est GFR (Non-Af Amer) 68.9 ml/min 11/09/20 17:58 BUN/Creatinine Ratio 16.7 (10-20) 11/09/20 17:58 Glucose 85 mg/dl (70-99) 11/09/20 17:58 POC Glucose 96 mg/dl (70-99) 11/09/20 17:57 Calcium 8.6 mg/dl (8.5-10.1) 11/09/20 17:58 Magnesium 2.4 mg/dl (1.8-2.4) 11/09/20 17:58 Total Bilirubin 1.1 mg/dl (0.2-1) H 11/09/20 17:58 AST 32 U/L (15-37) 11/09/20 17:58 ALT 39 U/L (12-78) 11/09/20 17:58 Alkaline Phosphatase 112 U/L (45-117) 11/09/20 17:58 Troponin I 0.049 ng/ml (0-0.045) H* 11/09/20 23:18 Total Protein 7.5 gm/dl (6.4-8.2) 11/09/20 17:58 Albumin 3.8 gm/dl (3.4-5.0) 11/09/20 17:58 Globulin 3.7 gm/dl (2.5-4.0) 11/09/20 17:58 Albumin/Globulin Ratio 1.0 (0.9-2) 11/09/20 17:58 COVID-19 Eval Order Covid19 at [facility] 11/09/20 18:18 SARS-CoV-2 (PCR) NEGATIVE (Negative) 11/09/20 18:18 Impressions Chest X-Ray 11/09/20 17:44 SINGLE VIEW CHEST CLINICAL HISTORY: Strokelike symptoms. Visual changes. FINDINGS: An AP, portable, upright chest radiograph is compared to study dated 05/28/2019. The cardiomediastinal heart is mildly enlarged. There is pulmonary vascular congestion. No airspace consolidation or large pleural effusion is identified. No pneumothorax is seen. The bony thorax is grossly intact. IMPRESSION: 1. Cardiomegaly with mild pulmonary vascular congestion. 2. No airspace consolidation or large pleural effusion is identified. ACT 112: Negative or not required by law. Electronically signed by: Gamaliel Friedman M.D. 11/09/2020 6:[address] 11/09/20 17:44 CT SCAN OF THE BRAIN WITHOUT IV CONTRAST CLINICAL HISTORY: Strokelike symptoms. COMPARISON STUDY: CT of the brain dated 05/02/2012. TECHNIQUE: Unenhanced axial CT scan of the brain is performed from the vertex to the skull base. A dose lowering technique was utilized adhering to the principles of ALARA. CT DOSE: 994.86 mGycm FINDINGS: Brain parenchyma: There is mild age-related involutional change. A small focus of high right frontoparietal encephalomalacia is consistent with a remote insult. There is no hemorrhage, mass effect, or evidence of acute territorial ischemia by CT criteria. Soto-white matter differentiation is preserved. No extra-axial fluid collection is seen. Ventricles, sulci, cisterns: Prominent secondary to involutional change. Intracranial vasculature: There is mild atherosclerotic calcification of the cavernous carotid arteries. Calvarium: Unremarkable. Sinuses and mastoids: There is evidence of previous paranasal sinus surgery. Th ere is complete opacification of the left sphenoid sinus, with moderate mucosal thickening in the right sphenoid sinus. Thickening and sclerosis of the sinus hoffman indicates chronicity. There is mild mucosal thickening within the ethmoid resection cavities, the frontal sinuses, and the maxillary antra. The mastoid air cells are well pneumatized. Orbits: The bony orbits are grossly intact. IMPRESSION: There is no hemorrhage, mass effect, or evidence of acute territorial ischemia by CT criteria. ACT 112: Negative or not required by law. Electronically signed by: Gamaliel Friedman M.D. 11/09/2020 5:56 PM Head CTA 11/09/20 18:01 CT ANGIOGRAM OF THE BRAIN; CT ANGIOGRAM OF THE NECK CLINICAL HISTORY: Right-sided visual field loss. COMPARISON STUDY: Unenhanced CT of the brain performed the same day 11/09/2020. TECHNIQUE: Following the IV administration of 110 of Optiray 350, CT angiogram of the head and neck was performed from the aortic arch to the vertex. Images are reviewed in the axial, sagittal, and coronal planes. 3-D MIPS images are created and assessed. IV contrast was administered without complication. All measurements were calculated based on NASCET criteria. A dose lowering technique was utilized adhering to the principles of ALARA. CT DOSE: 630.23 mGy.cm FINDINGS: Brain parenchyma: There is age-related involutional change. A small focus of high right frontoparietal encephalomalacia is consistent with a remote insult. There is no hemorrhage, mass effect, or evidence of acute territorial ischemia by CT criteria. There is no evidence of enhancing mass lesion on the angiogram phase images. The ventricles, sulci, and cisterns are prominent secondary to involutional change. Soto-white matter differentiation is preserved. No extra- axial fluid collection is seen. Thoracic aorta: Visualized portions of the thoracic aorta are normal in caliber. The aortic arch demonstrates standard 3-vessel anatomy. Right carotid arterial system: The right common carotid artery is widely patent, as are the right internal and Carotid arteries. Atherosclerotic plaque is noted in the carotid bulb. Left carotid arterial system: The left common carotid artery is widely patent. Plaque in the carotid bulb causes less than 50% stenosis at the origin of the left internal carotid artery. There is atherosclerotic irregularity throughout the left internal carotid artery which is otherwise widely patent. The left external carotid artery is clear. Vertebral arteries: The vertebral arteries are widely patent and codominant. Subclavian arteries: Widely patent bilaterally. Intracranial vasculature: The internal carotid arteries are patent at the skull base, as are the anterior and middle cerebral arteries bilaterally. The vertebrobasilar system and posterior cerebral arteries are widely patent. The vertebral arteries are codominant. There is no aneurysm, high-grade stenosis, or focal vessel cut off seen throughout the intracranial circulation. Jugular veins: Patent bilaterally. Dural sinuses: Patent. Lung apices: Partially visualized upper lobe lung parenchyma appears clear. Soft tissues: The visualized pharyngeal soft tissues are normal in appearance noting angiographic phase technique. The oropharyngeal airway appears widely patent. The salivary and thyroid glands are normal in appearance. No cervical lymphadenopathy is seen. Skeletal structures: The skeletal structures are osteopenic. The calvarium appears intact. The cervical spine is maintained noting multilevel spondylosis. No lytic or blastic lesion is seen. Orbits: The bony orbits are intact. Orbital contents are normal as visualized. Sinuses and mastoids: There is evidence of previous paranasal sinus surgery. There is complete opacification of the left sphenoid sinus, with moderate mucosal thickening in the right sphenoid sinus. Thickening and sclerosis of the sinus hoffman indicates chronicity. There is mild mucosal thickening within the ethmoid resection cavities, the frontal sinuses, and the maxillary antra. The mastoid air cells are well pneumatized. IMPRESSION: 1. There is no evidence of hemorrhage, mass effect, or acute territorial ischemia by CT criteria noting angiographic phase technique. 2. Unremarkable CT angiogram of the brain. 3. Atherosclerotic plaque causes less than 50% stenosis at the origin of the left internal carotid artery. 4. Otherwise unremarkable CT angiogram of the neck. ACT 112: Negative or not required by law. Electronically signed by: Gamaliel Friedman M.D. 11/09/2020 8:02 PM Neck CTA 11/09/20 18:01 CT ANGIOGRAM OF THE BRAIN; CT ANGIOGRAM OF THE NECK CLINICAL HISTORY: Right-sided visual field loss. COMPARISON STUDY: Unenhanced CT of the brain performed the same day 11/09/2020. TECHNIQUE: Following the IV administration of 110 of Optiray 350, CT angiogram of the head and neck was performed from the aortic arch to the vertex. Images are reviewed in the axial, sagittal, and coronal planes. 3-D MIPS images are created and assessed. IV contrast was administered without complication. All measurements were calculated based on NASCET criteria. A dose lowering technique was utilized adhering to the principles of ALARA. CT DOSE: 630.23 mGy.cm FINDINGS: Brain parenchyma: There is age-related involutional change. A small focus of high right frontoparietal encephalomalacia is consistent with a remote insult. There is no hemorrhage, mass effect, or evidence of acute territorial ischemia by CT criteria. There is no evidence of enhancing mass lesion on the angiogram phase images. The ventricles, sulci, and cisterns are prominent secondary to involutional change. Soto-white matter differentiation is preserved. No extra-ax ial fluid collection is seen. Thoracic aorta: Visualized portions of the thoracic aorta are normal in caliber. The aortic arch demonstrates standard 3-vessel anatomy. Right carotid arterial system: The right common carotid artery is widely patent, as are the right internal and Carotid arteries. Atherosclerotic plaque is noted in the carotid bulb. Left carotid arterial system: The left common carotid artery is widely patent. Plaque in the carotid bulb causes less than 50% stenosis at the origin of the left internal carotid artery. There is atherosclerotic irregularity throughout the left internal carotid artery which is otherwise widely patent. The left external carotid artery is clear. Vertebral arteries: The vertebral arteries are widely patent and codominant. Subclavian arteries: Widely patent bilaterally. Intracranial vasculature: The internal carotid arteries are patent at the skull base, as are the anterior and middle cerebral arteries bilaterally. The vertebrobasilar system and posterior cerebral arteries are widely patent. The vertebral arteries are codominant. There is no aneurysm, high-grade stenosis, or focal vessel cut off seen throughout the intracranial circulation. Jugular veins: Patent bilaterally. Dural sinuses: Patent. Lung apices: Partially visualized upper lobe lung parenchyma appears clear. Soft tissues: The visualized pharyngeal soft tissues are normal in appearance noting angiographic phase technique. The oropharyngeal airway appears widely patent. The salivary and thyroid glands are normal in appearance. No cervical lymphadenopathy is seen. Skeletal structures: The skeletal structures are osteopenic. The calvarium appears intact. The cervical spine is maintained noting multilevel spondylosis. No lytic or blastic lesion is seen. Orbits: The bony orbits are intact. Orbital contents are normal as visualized. Sinuses and mastoids: There is evidence of previous paranasal sinus surgery. There is complete opacification of the left sphenoid sinus, with moderate mucosal thickening in the right sphenoid sinus. Thickening and sclerosis of the sinus hoffman indicates chronicity. There is mild mucosal thickening within the ethmoid resection cavities, the frontal sinuses, and the maxillary antra. The mastoid air cells are well pneumatized. IMPRESSION: 1. There is no evidence of hemorrhage, mass effect, or acute territorial ischemia by CT criteria noting angiographic phase technique. 2. Unremarkable CT angiogram of the brain. 3. Atherosclerotic plaque causes less than 50% stenosis at the origin of the left internal carotid artery. 4. Otherwise unremarkable CT angiogram of the neck. ACT 112: Negative or not required by law. Electronically signed by: Gamaliel Friedman M.D. 11/09/2020 8:02 PM Diagnostic Findings [facility] Patient: AARON LONDON JR (Male) : 52 Status: IP Date: 11/10/20 01:19 Room #: s240-1 History: WAS WATCHING TV AND RT SIDE OF TV DISAPPEARED. MEITHER EYE COULD SEE TO RIGHT IF LOOKING AHEAD. PT STATES GOLFED AND WALKED 8 MILES MONDAY. VISION STILL IMPAIRED. HX OF TIA 5 YEARS AGO WITH SIMILAR EPISODE THAT LASTED ABOUT 5 MINUTES. Slices: 225 Priors: ct head, cta head/neck, mri head Tech: Jason Beckford @ [phone] Exams: MRI HEAD Contrast: Accession Numbers: [id number] Preliminary Findings Only See Final Report For Complete Findings MRI HEAD : Comparison: CT head 11/09/20 Findings consistent with acute infarct in left occipital lobe, measuring 3.2 x 2.0 cm. Associated T2/FLAIR hyperintensity. No hemorrhage. Evidence of chronic infarct at right precentral gyrus. Chronic sinusitis, worst at left sphenoid sinus. Post bilateral maxillary antrostomies and ethmoidectomies. Radiologist: Prabhjot Guerrero MD Study ready at 01:26 and initial results transmitted at 02:20 Results also transmitted to [address] [place] [address] ([id number]) @ [phone] (Fax) Communications: Clear Time Type Notes 11/10/20 02:59 Call Doctor Regarding Stroke, called Dr. Wheatley on 11/10 02:59 (- 04:00) *This report constitutes a preliminary interpretation only. Non-acute findings felt to be unrelated to the clinical presentation may not be discussed in this report. The study will be interpreted and a final report will be generated by the local Radiologist the following shift. To reach the hospital radiology department call [phone]. If a discrepancy is found between the preliminary and final interpretations of this study, please notify us via our Client Portal at [email or web address].You can also fax this report with a description of the discrepancy, or include the final report, to our daytime fax number [phone].If faxing, please indicate the severity of discrepancy using one of the following categories: [ ] 1 - Agree/Informational [ ] 2 - Unlikely to Affect Management [ ] 3 - Possible Eventual Change of Management [ ] 4 - Probable Immediate Change of Management For all other patient related information, please fax us at [phone]. [id number] Code Status & VTE Plan Code Status Full code VTE Prophylaxis Plan VTE Prophylaxis will be ordered: Yes PG Care Time/CCT Total # of Minutes Spent Total Time Spent with Patient: Total time spent is greater than 50% in coordination of care (as documented) at patient's floor/unit and/or counseling patient: Coding Level of Care Code 22830 Initial Inpt Care Lvl 3 Diagnoses Right homonymous hemianopsia due to recent cerebral infarction I69.398; H53.461 Stroke I63.9 CVA mechanism: unspecified Atrial flutter I48.92 Bradycardia R00.1 Hypertension I10 Asthma J45.909 History of cardioversion Z98.890 Hyperlipidemia E78.5 (1) Stroke CVA mechanism: unspecified Qualified Code(s): I63.9 - Cerebral infarction, unspecified
[2020-11-10] MEDS ORDERED: Heparin IV Adult Wt-Based Low-Dose *NO* Bolus Protocol IV SCH (03:38)
[2020-11-10] MEDS ORDERED: FLUTICASONE/VILANTEROL 200/25MCG 14 PUFFS/INHALER INH PRN (04:12)
[2020-11-10] MEDS ORDERED: HEPARIN SODIUM/DEXTROSE 25,000 UNITS/500 ML BAG IV SCH ×2 (04:30→16:15)
[2020-11-10 05:12] LABS: Basophils # (auto) 0.05 K/uL (0-0.2); Basophils % (auto) 0.6 %; Eosinophils # (auto) 0.69 K/uL (0-0.5); Eosinophils % (auto) 8.4 %; Hematocrit (blood only) 42.1 % (42-52); Hemoglobin 14.3 g/dL (14.0-18.0); Immature Granulocytes # (auto) 0.02 K/uL (0.00-0.02); Immature Granulocytes % (auto) 0.2 %; Lymphocytes # (auto) 1.25 K/uL (1.2-3.4); Lymphocytes % (auto) 15.2 %; Mean Corpuscular Volume 88.4 fL (80-100); Mean Platelet Volume 10.9 fL (7.4-10.4); Monocytes # (auto) 0.85 K/uL (0.11-0.59); Monocytes % (auto) 10.4 %; Neutrophils # (auto) 5.34 K/uL (1.4-6.5); Neutrophils % (auto) 65.2 %; Platelet Count 174 K/uL (130-400); RDW Coefficient of Variation 13.3 % (11.5-14.5); RDW Standard Deviation 43.1 fL (36.4-46.3); Red Blood Count 4.76 M/uL (4.7-6.1)
[2020-11-10 05:23] LABS: INR 1.1 (0.9-1.1); Partial Thromboplastin Ratio 1.2; Partial Thromboplastin Time 31.6 Seconds (21.0-31.0)
[2020-11-10 05:31] LABS: Albumin Level 3.4 gm/dl (3.4-5.0); BUN Creatinine Ratio 20.1 (10-20); Calcium 8.4 mg/dl (8.5-10.1); Creatinine Clr Calc Pharmacy 82.7 ml/min; Est GFR (African American) 89.7 ml/min; Est GFR (Non-African American) 77.4 ml/min; Magnesium 2.4 mg/dl (1.8-2.4); Potassium 4.5 mmol/L (3.5-5.1)
[2020-11-10 05:35] LABS: Bilirubin,Total 0.8 mg/dl (0.2-1); Globulin 3.3 gm/dl (2.5-4.0); Total Protein 6.7 gm/dl (6.4-8.2)
[2020-11-10 07:14] LABS: Estimated Average Glucose 123 mg/dl; Hemoglobin A1C 5.9 % (4.5-5.6)
--- NOTE | 2020-11-10 08:12 | Magnetic Resonance Report ---
MRI OF THE BRAIN WITHOUT IV CONTRAST CLINICAL HISTORY: Right-sided homonymous hemianopsia. COMPARISON STUDY: CT of the brain dated 11/09/2020. TECHNIQUE: MRI of the brain was performed utilizing various T1 and T2-weighted sequences in the axial , sagittal, and coronal planes. IV contrast was not administered for this examination. FINDINGS: Brain parenchyma: There is a 3.5 cm focus of restricted diffusion identified in the left occipital lo be consistent with acute to subacute ischemia. No additional foci of acute ischemia are identified. T here is no hemorrhage or mass effect. There is age-related involutional change noting minimal microan giopathic disease. A small chronic infarct is noted in the high right frontoparietal region. No extra -axial fluid collection is seen. The cerebellar tonsils are normal in configuration. Mineralization i s noted in the basal ganglia. Ventricles, sulci, and cisterns: Normal in configuration. Pituitary and sella: Unremarkable. Intracranial vasculature: Normal flow voids are maintained at the skull base. Orbits: The bony orbits are grossly intact. Orbital contents are normal in appearance. Sinuses and mastoids: There is evidence of previous cranial sinus surgery. There is near opacificatio n of the left sphenoid sinus. Mild mucosal thickening is seen throughout the remaining paranasal sinu ses. The mastoid air cells are clear. Calvarium: Unremarkable. Cervical cord: Partially visualized cervical spinal cord is normal in morphology and signal intensity . IMPRESSION: 1. Findings consistent with acute to subacute left occipital lobe infarct. 2. No additional foci of acute ischemia are identified. 3. There is no hemorrhage or mass effect. ACT 112: Negative or not required by law. Electronically signed by: Gamaliel Friedman M.D. 11/10/2020 8:10 AM
[2020-11-10] MEDS: amLODIPine BESYLATE 5 MG TAB PO SCH ×2 (08:36→09:01)
[2020-11-10] MEDS: lisinopril 40 MG TAB PO SCH ×2 (08:36→09:02)
[2020-11-10] MEDS ORDERED: FEXOFENADINE HCL 180 MG TAB PO SCH (09:00)
--- NOTE | 2020-11-10 09:58 | Cardiology Consultation ---
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 We may want to add a platelet inhibitor or do JOHNNIE depending on their interpretation of the event. He may have missed some Pradaxa, I am a little reluctant to switch his anticoag ulant (Pradaxa) based on this event. (2) Atrial fibrillation: He has permanent atrial fibrillation and has been on long-term anticoagulation. He is on no rate control medications but does not have an elevated heart rate. (3) On continuous oral anticoagulation: He has been on Pradaxa for a long time and has done well on it, to my knowledge there is no decreased efficacy of this drug compared to others and I am not sure this would represent a failure of this medication although clearly the event happened while he was on it although he may have missed a few doses. He will certainly need long-term anticoagulation and possibly platelet inhibitors, depending on neurology's opinion. (4) Bradycardia: He has an overall slow heart rate which we have been following, he was due to have another Holter monitor done I believe next month although on telemetry his heart rate has been within the range where he generally runs which is probably acceptable since he can be very active without symptoms. The heart rate certainly would not of had anything to do with his current presentation. History of Present Illness Reason for Consultation: CVA in the setting of permanent atrial fibrillation Attending Physician: Juan Antonio David, History of Present Illness This is a 70-year-old gentleman who has a long history of atrial fibrillation and flutter. His history dates back to at least 2000, at that time I believe he had atrial fibrillation requiring cardioversion and had electrophysiologic study at [facility] on September 20, 2001 but no ablation was performed. He may have failed flecainide at that time. He then had a right superior pulmonary vein isolation procedure performed at [facility] on January 25, 2002. This was repeated in May of 2002. Subsequently he had recurrence of atrial fibrillation and flutter and had an ablation July 11, 2006 at [facility] by Dr. Castro. He had repeat ablation at [facility] in July of 2008 and I believe was started on flecainide at that time. He had recurrent atrial flutter with cardioversion June 10, 2010 and again following knee surgery, the surgery was June 15, 2010. He had cardioversion performed at [facility] around June of 2010. He then did well until having recurrence documented by electrocardiography November 18, 2010. He was having significant fatigue and difficulty with exertion at that time. After discussing various options, including rate control, antiarrhythmics and potential repeat ablation, I scheduled him for a 24-hour Holter monitor to evaluate his heart rate. Although he was in atrial flutter in the office the monitor showed sinus rhythm throughout, evidently his atrial fibrillation was paroxysmal, however his symptoms did not change appreciably. It appeared some of his symptoms were due to inappropriate heart rate during exercise therefore we scheduled him for a stress test. This did indeed demonstrate chronotropic incompetence, he achieved only 61% of his predicted maximal heart rate at 10 mets. That was on metoprolol 50 mg daily, he reduced it to 25 mg and felt somewhat better and then we discontinued it altogether. He did feel much better after discontinuing metoprolol. A subsequent stress test during atrial flutter demonstrated a rapid heart rate (158 beats per minute) and a systolic blood pressure of 200 mmHg therefore Bystolic 5 mg daily was added to his regimen. His heart rate had been gradually dropping therefore I decreased his Bystolic and he felt somewhat better. His blood pressure remained well controlled as an outpatient therefore we discontinued his Bystolic on 03/04/2015. He has subsequently been started on lisinopril for blood pressure control and his heart rate has remained controlled or low and he is probably in permanent atrial fibrillation. He had been feeling quite well for a number of years and we have not done much with his medications and he has remained on anticoagulation for his atrial fibrillation but not on any rate control medications. An echocardiogram done on June 25, 2019 showed normal left ventricular function. He also had a Holter monitor performed on November 27, 2019. The heart rate ranged from minimum of 34 bpm at 4 AM to a maximum of 78 bpm at 4 PM with an average of only 50 bpm. For the most part throughout the recording his heart rate stabilizes at right around 50 bpm or just under based on the heart rate trend. He has continued to be very active, he has remained on Pradaxa (although he admits he may have missed a dose or 2 at times) and was feeling well before admission having played 18 holes of golf and taken a long walk with no abnormalities identified. He was watching TV on the evening of 11/09/2020 when he suddenly lost vision to the right side. He thinks this morning he may have slight improvement in his vision on that side. Evaluation here has shown a left occipital stroke, as well as a less than 50% left carotid stenosis but no other vascular abnormality. Allergies Allergy/AdvReac Type Severity Reaction Status Date / Time No Known Allergies Allergy Verified 11/09/20 18:29 Home Medications Medication Instructions Recorded Confirmed Type albuterol sulfate [ProAir HFA] 2 puff INHALATION QID PRN 12/25/18 11/09/20 History atorvastatin [Lipitor] 10 mg PO HS 12/25/18 11/09/20 History fexofenadine 180 mg PO QAM 12/25/18 11/09/20 History dabigatran etexilate 150 mg capsule 150 mg PO BID #180 cap 12/12/19 11/09/20 Rx Cbd Gummy 1 tab PO BID 02/20/20 11/09/20 History amlodipine 2.5 mg PO DAILY 11/09/20 11/09/20 History fluticasone propion-salmeterol 1 ea INHALATION UD PRN 11/09/20 11/09/20 History [Advair Diskus] lisinopril 40 mg PO DAILY 11/09/20 11/09/20 History Patient History Medical History Asthma Atrial fibrillation Chronic back pain GERD (gastroesophageal reflux disease) History of cardioversion "SEVERAL" (FOLLOWS WITH DR. SHAW) Hyperlipidemia Hypertension Osteoarthritis Transient ischemic attack (TIA) 2009 Surgical History History of adenoidectomy History of cardiac radiofrequency ablation X 4 (LAST PROCEDURE AT [place] 2009) History of colonoscopy History of endoscopic sinus surgery X 2 History of nasal septoplasty History of tonsillectomy History of tooth extraction History of total hip arthroplasty LEFT History of total knee replacement RT Family History Other No significant family history Social History Smoking Status: Never smoker Second Hand Exposure: No; Hx Alcohol Use: Yes Alcohol type: wine Hx Substance Use: No Preferred Language: Yakut Communication Ability: Effective Barrel Driller Required: No Beliefs That Will Affect Care: None Current Living Situation: Spouse Other Information That Helps Us Care for You: No Feels Safe at Home: Yes Safety Concerns: Feels Safe At This Time Assistive Devices: Hearing Aid - Bilateral Review of Systems Review of Systems: All systems reviewed & are unremarkable except as noted in HPI & below Physical Exam Physical Exam: Constitutional: Alert, cooperative and in no distress. HEENT: Unremarkable other than reported right visual field loss. Neck: No jugular venous distention, carotid pulses are irregular but otherwise normal and equal bilaterally without bruits. Pulmonary: Clear to auscultation bilaterally. Cardiac: Irregular rhythm with no murmur, gallop or rub. Abdomen: Soft, nontender with normal bowel sounds. Extremities: No edema. Distal pulses intact. Neurologic: No focal findings other than reporting right visual field loss. Gait was not tested. Skin: No rash, ecchymoses or petechiae. Results & Data ([facility]) Vital Signs (Past 12 Hours) Vital Signs Temp Pulse Pulse Resp BP BP Pulse Ox 11/10/20 09:02 47 L 164/79 H 95 11/10/20 06:29 37.0 C 42 L 16 155/78 H 97 11/10/20 03:18 36.7 C 41 L 18 158/78 H 97 11/09/20 22:45 36.9 C 44 L 18 179/83 H 98 11/09/20 22:15 47 L 24 174/90 H 98 11/09/20 22:00 42 L 21 182/95 H 98 11/09/20 21:45 40 L 17 169/95 H 98 Laboratory Results Cardiac Enzymes 11/09/20 11/09/20 11/10/20 Range/Units 17:58 23:18 04:46 AST 32 26 (15-37) U/L Troponin I 0.049 H* (0-0.045) ng/ml 11/10/20 Range/Units 06:55 AST (15-37) U/L Troponin I 0.058 H* (0-0.045) ng/ml Coagulation 11/09/20 11/10/20 Range/Units 17:58 04:46 PT 11.1 11.0 (9.0-12.0) Seconds APTT 36.5 H 31.6 H (21.0-31.0) Seconds Lipids 11/10/20 Range/Units 04:46 Triglycerides 59 (0-150) mg/dl Cholesterol 130 (0-200) mg/dl HDL Cholesterol 52 mg/dl Cholesterol/HDL Ratio 3 CBC 11/09/20 11/10/20 Range/Units 17:58 04:46 WBC 8.68 8.20 (4.8-10.8) K/uL RBC 5.02 4.76 (4.7-6.1) M/uL Hgb 15.2 14.3 (14.0-18.0) g/dL Hct 44.4 42.1 (42-52) % Plt Count 176 174 (130-400) K/uL Neut # (Auto) 5.34 (1.4-6.5) K/uL Lymph # (Auto) 1.25 (1.2-3.4) K/uL Meriwether # (Auto) 0.85 H (0.11-0.59) K/uL Eos # (Auto) 0.69 H (0-0.5) K/uL Baso # (Auto) 0.05 (0-0.2) K/uL Comprehensive Metabolic Panel 11/09/20 11/10/20 Range/Units 17:58 04:46 Sodium 141 142 (136-145) mmol/L Potassium 4.1 4.5 (3.5-5.1) mmol/L Chloride 109 H 111 H (98-107) mmol/L Carbon Dioxide 26 28 (21-32) mmol/L BUN 18 20 H (7-18) mg/dl Creatinine 1.09 0.99 (0.6-1.4) mg/dl Glucose 85 95 (70-99) mg/dl Calcium 8.6 8.4 L (8.5-10.1) mg/dl AST 32 26 (15-37) U/L ALT 39 34 (12-78) U/L Alkaline Phosphatase 112 95 (45-117) U/L Total Protein 7.5 6.7 (6.4-8.2) gm/dl Albumin 3.8 3.4 (3.4-5.0) gm/dl Intake and Output 11/09/20 11/10/20 11/10/20 22:59 06:59 14:59 Intake Total 350 / 350 Balance 350 / 350 Intake: Oral 350 / 350 Other: # Unmeasured Voids 2 Weight 93.1 kg 94.5 kg Weight Measurement Method Built in Bedscale Standing Scale Diagnostic Findings Telemetry: Atrial fibrillation, heart rate 35-45 typically, no significant pauses noted. PG Care Time/CCT Total # of Minutes Spent Total Time Spent with Patient: Total time spent is greater than 50% in coordination of care (as documented) at patient's floor/unit and/or counseling patient: Coding Level of Care Code 14161 Initial Inpt Care Lvl 3 Diagnoses Right homonymous hemianopsia due to recent cerebral infarction I69.398; H53.461 Atrial fibrillation I48.20 Atrial fibrillation type: unspecified chronic On continuous oral anticoagulation Z79.01 Bradycardia R00.1 (1) Atrial fibrillation Atrial fibrillation type: unspecified chronic Qualified Code(s): I48.20 - Chronic atrial fibrillation, unspecified
[2020-11-10 11:38] LABS: Partial Thromboplastin Ratio 1.6; Partial Thromboplastin Time 43.2 Seconds (21.0-31.0)
--- NOTE | 2020-11-10 13:14 | Electrocardiogram Report ---
Test Reason : Blood Pressure : / mmHG Vent. Rate : 040 BPM Atrial Rate : 049 BPM P-R Int : 000 ms QRS Dur : 098 ms QT Int : 536 ms P-R-T Axes : 000 021 126 degrees QTc Int : 436 ms Atrial fibrillation with slow ventricular response Incomplete right bundle branch block Poor R wave progression, consider anterior PR vs. lead placement vs. LVH T wave abnormality, consider lateral ischemia Abnormal ECG When compared with ECG of 01-JUL-2014 12:19, Nonspecific T wave abnormality, improved in Inferior leads Confirmed by Caleb Thorne ([id number]) on 11/10/2020 1:14:35 PM Referred By: REFERRED SELF Confirmed By:Caleb Thorne
--- NOTE | 2020-11-10 13:51 | Electrocardiogram Report ---
Test Reason : Blood Pressure : / mmHG Vent. Rate : 044 BPM Atrial Rate : 357 BPM P-R Int : 000 ms QRS Dur : 098 ms QT Int : 532 ms P-R-T Axes : 000 062 113 degrees QTc Int : 454 ms Atrial fibrillation with slow ventricular response Incomplete right bundle branch block Abnormal ECG When compared with ECG of 09-NOV-2020 18:02, (unconfirmed) No significant change was found Confirmed by Caleb Thorne ([id number]) on 11/10/2020 1:50:59 PM Referred By: REFERRED SELF Confirmed By:Caleb Thorne
--- NOTE | 2020-11-10 13:52 | Medical Student Progress Note ---
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 Symptoms have improved but have not resolved since admission particularly in the upper right quadrant of the pt's visual field. MRI showed a 3.2 x 2.0 cm acute infarct in the left occipital lobe consistent with the pt's symptoms. As far as a possible source is concerned, a CTA and EKG were performed to rule out secondary embolic causes. CTA showed 50% ICA stenosis and EKG showed Afib at 40 bpm. With the pt admitting to missing the occasional dosage of dabigatran, no evidence of stenosis of vessels supplying the posterior circulation to the brain on CTA, and a relatively stable atrial fibrillation of 40 bpm, source was likely thrombotic however, the a secondary embolic source cannot be excluded. Pt was instructed to continue on dabigatran 150 mg PO BID, lisinopril 40 mg PO daily, amlodipine 2.5 mg PO daily, and increase atorvastatin to 40 mg PO HS and educated on lifestyle modifications to reduce thromboembolic risk including a Mediterranean diet and regular aerobic exercise. (2) Atrial fibrillation: Pt has a history of atrial fibrillation with multiple cardiac radiofrequency ablations and cardioversions done in the past. With a rate of 40 bpm, rate control is not warranted at this time. Pt will continue to follow up with Dr. Lerner for follow up. Atrial fibrillation type: unspecified chronic Qualified Code(s): I48.20 - Chronic atrial fibrillation, unspecified (3) Elevated troponin: Pt presented with a troponin of 0.049 with no baseline reference from a prior hospital visit. Repeat troponin was a 0.058. Considering there was no evidence of ST changes or T wave inversions on EKG and pt had no acute complaints consistent with a cardiac etiology, pt will continue hypertensive, anticoagulation, cholesterol management with dabigatran 150 mg PO BID, lisinopril 40 mg PO daily, amlodipine 2.5 mg PO daily, and atorvastatin to 40 mg PO HS. Pt will follow up with Dr. Lerner for cardiac management. (4) On continuous oral anticoagulation: Pt was originally on dabigatran. During pt's hospitalization, it was discontinued and pt was placed on heparin IV low-dose. Pt admits to missing dosages of dabigatran occasionally. Pt will restart dabigatran 150 mg PO BID. (5) Hypertension: Pt presented with a blood pressure of 195/85 which is now 153/83 today. Blood pressure is being managed with lisinopril 40 mg PO daily and amlodipine 2.5 mg PO daily. With most recent blood pressure of 153/83, pt will follow up with PCP for blood pressure checks. Pt will continue with lisinopril 40 mg PO daily and amlodipine 2.5 mg PO daily (6) Asthma: Pt has stable asthma symptoms controlled with albuterol sulfate 2 puff QID PRN and fluticasone propion-salmeterol 1 puff UD PRN. Pt will continue albuterol sulfate 2 puff QID PRN and fluticasone propion- salmeterol 1 puff UD PRN. (7) GERD (gastroesophageal reflux disease): Pt has stable GERD symptoms managed with fexofenadine 180 mg PO QAM. Pt will continue fexofenadine 180 mg PO QAM. Admission and Anticipated Discharge Date Admission Date: November 09, 2020 Supervising Attestation I personally examined the patient and verified all buck points of history and exam, discussed case, and agree with decision making with Lisandra GOFF Feeling better. Still has blind spots but improved. Vitals noted, in general no distress right-sided visual field defects noted Occipital strokesecondary risk reduction. Overall appearing stable. See discharge summary. Subjective 70 M with a past medical history of atrial fibrillation status post ablation on epigastrium presenting with sudden onset of right-sided visual loss in both eyes. Walking 18 holes of golf, sitting down watching TV when the symptoms. Loss of right half of vision same as when he had a TIA 5 years ago but unlike this event, he had regained vision in a couple of minutes. Pt came to the ER immediately once he noticed right sided visual loss in both eyes. On arrival, pt denied headache, dizziness, numbness, weakness, difficulty speaking, or aphasia- like symptoms. Pt had an EKG done which showed 40 bpm Afib with no ST elevation or T wave inversions. CT head showed no hemorrhage or mass effect. Pt had an MRI of the head that showed 3.2 x 2.0 cm acute infarct in the left occipital lobe. CTA of the head and neck showed 50% ICA stenosis. Pt had dabigatran discontinued and was placed on heparin IV low dose, continued on amlodipine and lisinopril, and atorvastatin was increased from 10 to 80 mg daily. Today the patient has no new acute complaints. Pt states that he believes that while his vision loss has not resolved it has improved as he now sees a little more from the right half of his vision in both eyes. Pt states that while he has been compliant with his medications for the most part, he does admit to missing the occasional dose of his dabigatran. Review of Systems Constitutional: no fever and no chills Respiratory: no dyspnea Cardiovascular: no chest pain and no edema Gastrointestinal: no abdominal pain, no nausea, no vomiting, no constipation and no diarrhea/loose stools Neurologic: no generalized weakness, no tingling, no numbness, no radiating pain and no dizziness Right visual field loss has improved but still diminished from baseline Physical Exam Constitutional: cooperative and comfortable; no acute distress Respiratory: Symmetric chest movement. Faint audible expiratory wheezes bilaterally. Cardiovascular: Rate/Rhythm: regular rate and regular rhythm Heart Sounds: normal S1 and normal S2; no click, no gallop, no murmur and no cardiac rub Vessels: no cranial bruit Extremities: no pedal edema Normal pedal pulses Gastrointestinal (Abdomen): Inspection/Auscultation: abdomen normal to inspection and normal bowel sounds; abdomen not distended Percussion/Palpat ion: abdomen soft; abdomen nontender Neurologic: Deep tendon reflexes 2+ bilaterally, normal sensation distally with an intact ability to distinguish sharp and dull sensations. CNII: PERRL, Visual leon normal on left with evidence of right homonymous hemianopsia. Slightly more loss of vision in lower right visual field than upper right visual field. CNIII: EOM intact CNIV: EOM intact CNV: normal sensation in V1, V2, V3 sections CNVI: EOM intact CNVII: symmetrical muscle movement in face with eyebrows, cheeks, smiling CNVIII: normal hearing bilaterally CNIX and CNX: symmetric palate movement CNXI: normal accessory muscle movement with and without resistance CNXII: symmetric tongue protrusion Results & Data ([facility]) Vital Signs (Past 12 Hours) Vital Signs Temp Pulse Resp BP Pulse Ox 11/10/20 11:41 37.0 C 41 L 20 153/83 H 97 11/10/20 09:02 47 L 164/79 H 95 11/10/20 06:29 37.0 C 42 L 16 155/78 H 97 11/10/20 03:18 36.7 C 41 L 18 158/78 H 97
--- NOTE | 2020-11-10 14:43 | Neurology Consultation ---
Date of Consultation November 10, 2020 Assessment & Plan (1) Occipital stroke: True Mehta is a 70 yo man w/ PMH of HTN, HLD, arthritis, AFib on pradaxa, h/o TIA, asthma and chronic LBP who p/t [facility] with acute onset of right visual field deficit. Symptom localization: left occipital lobe Stroke mechanism: cardioembolic Stroke WorkUp: - CT head: shows no hemorrhage or new hypodensity, right frontal parietal encephalomalacia noted from prior stroke, mild SVID, mild generalized atrophy with ex vacuo dilation - CTA head/neck: shows no LVO, high-grade stenosis or aneurysm - MRI brain: shows subacute infarct in the left occipital lobe, chronic infarct in the right frontoparietal lobe, mild SVID, mild bibasilar calcification - TTE: pending - Telemetry: pending - A1c: 5.9 - FLP: 66 - Troponin: 0.049 ->0.058 Stroke Management: - Acute treatment: ASA - Continuous cardiac monitoring - Vitals, Neurochecks, NIHSS per unit routine - BP parameters: SBP CAP 180, restart home anti-hypertensives for goal normotension over next 3-4 days - Complete ischemic stroke workup with TTE without bubble - Consult speech, PT, OT for supportive management - Will student counselor concerning stroke education, smoking cessation, healthy diet, physical activity, weight loss - Follow up with PCP for assistance with outpatient goals (BP <130/80, LDL <70, A1c <7) - Follow up in neurology clinic in 6-8 weeks with [facility] Secondary Stroke Prevention: - Antiplatelet: discontinue pradaxa - Anticoagulation: start apixaban if non-valvular Afib noted on TTE (TTE pending) - Statin: continue home atorvastatin 10mg qhs HTN: - BP parameters, as above - Restart home medications with goal of lowering BP to normotension over next 3- 4 days FEN/GI: - Diet: Cardiac HH diet and PO meds given absence of bulbar signs or symptoms - Monitor lytes and replete PRN Glucose Control: - Sliding scale insulin and accuchecks per primary team to avoid hyperglycemia Thank you for this interesting consult. Plan of care was discussed with primary team. Please call with any questions. He is stable for discharge from a neurological standpoint (2) Hyperlipidemia: (3) Hypertension: (4) Atrial fibrillation: History of Present Illness Attending Physician: Juan Antonio David DO History of Present Illness True Mehta is a 70 yo man w/ PMH of HTN, HLD, arthritis, AFib on pradaxa, h/o TIA, asthma and chronic LBP who p/t [facility] with acute onset of right visual field deficit. DEMI CHEF ~5:10pm on 11/09/20. In the ED, he was afebrile, BP 195/85, heart rate 43, respirate 16, satting 97% room air. Labs notable for WBC 8.68, hemoglobin 13.2, platelets 126, lytes within normal, creatinine 1.09, glucose 85, INR 1.1, LFTs within normal, Covid negative. Imaging independently reviewed. CT head shows no hemorrhage or new hypodensity, right frontal parietal encephalomalacia noted from prior stroke, mild SVID, mild generalized atrophy with ex vacuo dilation. CTA head and neck shows no LVO, high-grade stenosis or aneurysm. MRI brain shows subacute infarct in the left occipital lobe, chronic infarct in the right frontoparietal lobe, mild SVID, mild bibasilar calcification. On examination, he reports that he was in his normal state of health until yesterday while watching tv and he noticed a right visual field cut. Symptoms persisted beyond 5-10 minutes, prompting presentation to the ED for evaluation. He reports that he takes pradaxa at home with no recent missed doses. Denies any recent medication changes, illnesses or injuries. Has baseline bradycardia that is asymptomatic. Patient Features: Admission NIHSS: 2 Admission Modified Christine Scale: 0 Time patient last seen well: 5:10pm on 11/09/20 Wake up stroke: No Intubation status: Not intubated Stroke Risk Factors: Hypertension: Y Hyperlipidemia: Y Atrial Fib: Y Tobacco: N Diabetes: N Taking NOAC or warfarin: Allergies Allergy/AdvReac Type Severity Reaction Status Date / Time No Known Allergies Allergy Verified 11/09/20 18:29 Home Medications Medication Instructions Recorded Confirmed Type albuterol sulfate [ProAir HFA] 2 puff INHALATION QID PRN 12/25/18 11/09/20 History atorvastatin [Lipitor] 10 mg PO HS 12/25/18 11/09/20 History fexofenadine 180 mg PO QAM 12/25/18 11/09/20 History dabigatran etexilate 150 mg capsule 150 mg PO BID #180 cap 12/12/19 11/09/20 Rx Cbd Gummy 1 tab PO BID 02/20/20 11/09/20 History amlodipine 2.5 mg PO DAILY 11/09/20 11/09/20 History fluticasone propion-salmeterol 1 ea INHALATION UD PRN 11/09/20 11/09/20 History [Advair Diskus] lisinopril 40 mg PO DAILY 11/09/20 11/09/20 History Patient History Medical History Asthma Atrial fibrillation Chronic back pain GERD (gastroesophageal reflux disease) History of cardioversion "SEVERAL" (FOLLOWS WITH DR. SHAW) Hyperlipidemia Hypertension Osteoarthritis Transient ischemic attack (TIA) 2009 Surgical History History of adenoidectomy History of cardiac radiofrequency ablation X 4 (LAST PROCEDURE AT [facility] 2009) History of colonoscopy History of endoscopic sinus surgery X 2 History of nasal septoplasty History of tonsillectomy History of tooth extraction History of total hip arthroplasty LEFT History of total knee replacement RT Family History Other No significant family history Social History Smoking Status: Never smoker Second Hand Exposure: No; Hx Alcohol Use: Yes Alcohol type: wine Hx Substance Use: No Preferred Language: [place] Communication Ability: Effective Straight Cutter Machine Required: No Beliefs That Will Affect Care: None Current Living Situation: Spouse Other Information That Helps Us Care for You: No Feels Safe at Home: Yes Safety Concerns: Feels Safe At This Time Assistive Devices: Hearing Aid - Bilateral Review of Systems Review of Systems: 14 point review of systems completed and negative except as in HPI. Exam (Neuro) Physical Exam: General Exam: GEN: NAD, sitting/lying down in examination bed. HEENT: No conjunctival injection, no rhinorrhea. CV: RRR on monitor, no significant edema. PULM: Nonlabored respirations on room air. Neuro Exam: MS: Awake and Alert. Oriented to person, place, and date. Speech fluent and appropriate without dysarthria or paraphasic errors. Language intact including naming, comprehension, repetition. Cognition and memory grossly intact. Attention intact. No neglect. 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 No extinction to double simultaneous stimuli. Unable to visualize fundi on fundoscopic exam. PERRLA OU. EOMI without nystagmus. Facial sensation intact to LT. Facial muscles full and symmetric. Hearing intact to conversation. Shoulder shrug normal. Tongue midline. MOTOR: Normal bulk and tone. No pronator drift. BUE strength 5/5 at deltoids, biceps, triceps, wrist flexors and extensors, and finger flexors bilaterally. BLE strength 5/5 at iliopsoas, hamstrings, quadriceps, tibialis anterior, and gastrocnemius bilaterally. REFLEXES: 2+ at biceps, triceps, brachioradialis, 1+ patella, and absent Achilles bilaterally. Flexor plantar responses bilaterally. SENSORY: Intact to LT/vibration throughout, no extinction to double simultaneous stimuli. COORDINATION: No dysmetria or ataxia on [id number] bilaterally. Normal Vaughn bilaterally. GAIT: Deferred due to physical status. NIH STROKE SCALE 1A. Level of Consciousness (0-3) = 0 1B. LOC Questions (0-2) = 0 1C. LOC Commands (0-2) = 0 2. Best Horizontal Gaze (0-2) = 0 3. Visual Mccann (0-3) = 1 4. Facial Palsy (0-3) = 0 5. Motor Arm Right (0-4) = 0 Left (0-4) = 0 6. Motor Leg Right (0-4) = 0 Left (0-4) = 0 7. Limb Ataxia (0-2) = 0 8. Sensory (0-2) = 0 9. Best Language (0-3) = 0 10. Dysarthria (0-2) = 0 11. Extinction and Inattention (0-2) = 0 NIHSS TOTAL = 1 Results & Data ([facility]) Vital Signs (Past 12 Hours) Vital Signs Temp Pulse Resp BP Pulse Ox 11/10/20 11:41 37.0 C 41 L 20 153/83 H 97 11/10/20 09:02 47 L 164/79 H 95 11/10/20 06:29 37.0 C 42 L 16 155/78 H 97 11/10/20 03:18 36.7 C 41 L 18 158/78 H 97 PG Care Time/CCT Total # of Minutes Spent Total Time Spent with Patient: Total time spent is greater than 50% in coordination of care (as documented) at patient's floor/unit and/or counseling patient: Coding Level of Care Code 59535 Initial Inpt Care Lvl 3 Diagnoses Occipital stroke I63.9 Hyperlipidemia E78.5 Hypertension I10 Atrial fibrillation I48.20 Atrial fibrillation type: unspecified chronic (1) Atrial fibrillation Atrial fibrillation type: unspecified chronic Qualified Code(s): I48.20 - Chronic atrial fibrillation, unspecified
--- NOTE | 2020-11-10 15:13 | XCELERA ---
[id number]
[2020-11-10] MEDS ORDERED: DABIGATRAN ETEXILATE 75 MG CAP PO SCH ×2 (17:37→21:00)
[2020-11-10] MEDS ORDERED: STROKE PATIENT DISCHARGE STA ×2 (18:11→18:56)
--- NOTE | 2020-11-10 19:09 | Discharge Summary ---
Date of Service November 10, 2020 Admission HPI Per Admitting Provider The patient is a 70-year-old male with a past medical history including atrial fibrillation, hypertension, hyperlipidemia, allergic rhinitis, asthma, chronic anticoagulation on dabigatran, who presents to the emergency department with acute onset of right-sided visual field loss bilaterally. He reports that he had been out playing golf for the better part of the day, and after coming home, developed acute onset of the symptoms. He denies any associated issue with swallowing or speaking, right-sided or left-sided weakness or change in sensation. He was made a stroke alert in triage. Imaging studies: CT head without contrast negative, CTA of head and neck negative except for LICA stenosis of less than 50%. EKG showed atrial flutter with block, and bradycardia at a rate of 40. Heart monitor in ED varied from the mid 30s to low 40s and rate. The patient was COVID-19 negative in the ED. Principal Diagnosis Occipital stroke Discharge Exam See progress note from earlier, general in no distress. HEENT normocephalic atraumatic mucous membranes moist. Breathing unlabored no accessory muscle use. Has right-sided visual field defects. Discharge Data Allergies Allergy/AdvReac Type Severity Reaction Status Date / Time No Known Allergies Allergy Verified 11/09/20 18:29 Consultations 11/09/20 20:17 ED Decision to Admit Stat 11/09/20 23:03 Consult Cardiology Routine Consult Neurology Routine Ordered Studies 11/09/20 17:44 CT head/brain wo con Stat 11/09/20 18:01 CT angio head w con Stat CT angio neck with con Stat 11/10/20 00:22 MR brain wo con Urgent Hospital Course (1) Right homonymous hemianopsia due to recent cerebral infarction: Right homonymous hemianopsia/3.2 x 2.0 cm acute infarct left occipital lobe- Not a TPA candidate, [employer] atherosclerotic versus less likely but not impossible cardioembolic. Added aspirin, increased atorvastatin for vascular anti- inflammatory benefit, discussed Pradaxa versus Eliquis, but it seems that this would be a lateral move without a whole lot of benefit for him, simply encouraged adherence to his Pradaxa. Discussed Mediterranean diet and daily exercise. Stable for home, no driving until he is clearly aware of his new blind spots, recommended outpatient optometry follow-up for better categorization of his visual leon, outpatient follow-up with PCP. (2) Stroke: See above (3) Atrial flutter: With asymptomatic bradycardia and occasional pauses. Given no symptoms, and baseline bradycardia as well as good cardiovascular health, stable for home with outpatient follow-up with cardiology (4) Bradycardia: See above (5) Hypertension: Home meds (6) Asthma: Continue Advair Diskus (7) History of cardioversion: History of multiple cardioversions with Dr. Fonseca (8) Hyperlipidemia: Increased Lipitor to 40 mg, his lipids are adequately suppressed, but given that he has had a vascular event the higher secondary risk reduction would be of benefit to him. Total Time Total Time Spent Total Time Spent (In Minutes): >30 Discharge Plan Discharge Items Patient Disposition: Home - Self-Care Reason For Visit: RIGHT HOMONYMOUS HEMIANOPSIA Discharge Diagnosis: occipital lobe stroke Activity: Resume your previous activity Non-emergency contact: Primary Care Provider and Neurologist Call non-emergency contact if: you have any medication questions Follow-up/Referrals: Salvador Salinas [Primary Care Provider] - Diet: Regular Addtl Attending Provider Instructions: stroke -as we discussed, the vision loss was from a stroke in your occipital lobe - the back part of your brain that controls vision -fortunately you're showing good stability and even a hint of recovery already -we'd highly recommend that you follow up with your eye doctor to really get your visual field deficits well-outlined -this will help you know where your blind spots are (and over time they can also hopefully help track for improvement) -please refrain from driving until you've had time to adapt to your new blind spots - it's really easy to get into an accident from a car/pedestrian/etc that you couldn't see until you're more aware of how to better scan the area ---> medically, the main "job" with strokes is to try to recognize root cause and set things in motion to prevent a recurrence. 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 to help with this - we've increased the dose of your lipitor (atorvastatin) to 40mg, not because your cholesterol numbers need to be lower, but because at 40- 80mg dosing, it can help stabilize the plaque that is already in the artery. additionally, we've added an 81mg aspirin to help act as an anti-platelet blood thinner in the blood vessels. separately, it's theoretically possible that you had a clot form related to the atrial fibrillation, although this seems far less likely given the path the clot would have to take in order to go from your heart to your occipital lobe. "behind the curtain" there was a debate about if you would benefit from switching from pradaxa to eliquis, but really both of these blood thinners work quite well so it's not likely to help much making a medicine change in this regard (because both medicines work quite well AND because it's not nearly as likely that the stroke came from an atrial fibrillation related clot than it is from atherosclerosis in the posterior cerebral artery) -- this is something that can be ongoing discussion with dr salinas, but it really appeared best to stay with the pradaxa and just make sure you do your best to never miss a dose Pending Studies at Discharge: No Stand-Alone Forms: Medications to Prevent Stroke, [facility], Smoking Cessation Medications and DC Order Prescriptions: New atorvastatin 40 mg tablet 40 mg PO DAILY Qty: 30 RF: 0 aspirin 81 mg tablet,delayed release (DR/EC) 81 mg PO DAILY Qty: 30 RF: 0 Continued Pradaxa 150 mg capsule 150 mg PO BID Qty: 180 RF: 3 fexofenadine 180 mg Tablet 180 mg PO QAM RF: 0 albuterol sulfate [ProAir HFA] 90 mcg/actuation Hfa Aerosol Inhaler 2 puff INHALATION QID PRN (Reason: SHORT OF BREATH) RF: 0 Cbd Gummy 1 tab PO BID RF: 0 lisinopril 40 mg tablet 40 mg PO DAILY RF: 0 amlodipine 2.5 mg tablet 2.5 mg PO DAILY RF: 0 fluticasone propion-salmeterol [Advair Diskus] 250-50 mcg/dose blister with device 1 ea INHALATION UD PRN (Reason: Shortness Of Breath Or Wheezing) RF: 0 Discontinued atorvastatin [Lipitor] 10 mg Tablet 10 mg PO HS RF: 0 Discharge Orders: Discharge Order (Routine); Ordered 11/10/20 Ordered By: Juan Antonio David Admission Data Admit Date/Time: 11/09/20 20:56 Attending Provider: Juan Antonio David Admit Provider: Harley Toro Primary Care Provider: Salvador Salinas Other Providers: Harley Toro ; Parth Lerner ; Charo Valdez Other Interventions: Discharge Summary Assessment (RN) Last Done: 11/10/20 19:02 Coding Level of Care Code D/C Day Management >30 mins Diagnoses Right homonymous hemianopsia due to recent cerebral infarction I69.398; H53.461 Stroke I63.9 CVA mechanism: unspecified Atrial flutter I48.92 Bradycardia R00.1 Hypertension I10 Asthma J45.909 History of cardioversion Z98.890 Hyperlipidemia E78.5
--- NOTE | 2020-11-10 19:30 | Pharmacy Report ---
Pharmacist Stroke Counseling - Date of Service November 10, 2020 - Scope: Pharmacy has been consulted to provide medication discharge counseling for this patient admitted with ischemic stroke as per the Pharmacist Discharge Counseling for Stroke Patients Protocol. - Medications on Discharge: Home Medications Medication Instructions Recorded Confirmed albuterol sulfate [ProAir HFA] 2 puff INHALATION QID PRN 12/25/18 11/09/20 fexofenadine 180 mg PO QAM 12/25/18 11/09/20 Cbd Gummy 1 tab PO BID 02/20/20 11/09/20 amlodipine 2.5 mg PO DAILY 11/09/20 11/09/20 fluticasone propion-salmeterol 1 ea INHALATION UD PRN 11/09/20 11/09/20 [Advair Diskus] lisinopril 40 mg PO DAILY 11/09/20 11/09/20 New Rx's Medication Instructions Recorded dabigatran etexilate 150 mg capsule 150 mg PO BID #180 cap 12/12/19 aspirin 81 mg PO DAILY #30 tab 11/10/20 atorvastatin 40 mg PO DAILY #30 tab 11/10/20 - Action: The above medications, specifically ones for stroke treatment/prophylaxis, have been reviewed in detail with the patient and/or patient packaging sales representative(s) prior to discharge. This includes indication, common adverse reactions, drug interactions, and medication administration. Medication counseling has been employed using the teach-back method to ensure understanding. - Outcome: The patient and/or patient packaging sales representative(s) have demonstrated understanding of the medications. Additional comments: * Counseling provided prior to discharge via telephone * Patient sounded knowledgeable and aware regarding his medications * He was on atorvastatin 10mg prior to admission; explained dose increase. He can use old tablets but taking 4 tabs x 10mg = 40mg * Explained aspirin in OTC and may not be covered by insurance; he can purchase in store. He is aware to monitor for bleeding/bruising. He is also on Pradaxa, so is at higher risk for bleeding/bruising complications Thank you for allowing pharmacy to be involved in the care of this patient. Please call [phone] with any additional questions
== END 2020-11-10 19:31 | disposition home or self-care (01) | DRG 65 ==
LOC: ED 17:38 → SUATTDRO 20:56 → 2S 20:56

== ENCOUNTER 2020-12-22 12:11 | Observation (INO) ==
[2020-12-22] MEDS ORDERED: VANCOMYCIN HCL 1000MG/20ML VIAL ONE (12:29)
[2020-12-22] MEDS ORDERED: WATER, STERILE FOR INJ 10 ML VIAL ONE (12:29)
[2020-12-22] MEDS ORDERED: LIDOCAINE 1% LOCAL 20 ML VIAL ONE (12:29)
[2020-12-22] MEDS ORDERED: BACITRACIN OINT 0.9 GM PKT ONE (12:29)
--- NOTE | 2020-12-22 13:17 | History & Physical Bridge Note ---
Date of Service December 22, 2020 History & Physical Bridge Note I have examined the patient, reviewed the History & Physical and in the interval since the performance of the History & Physical I have noted the following changes of clinical significance: no changes noted. I reviewed the indications, procedure, risks and alternatives with the patient, answered all questions. Consent obtained. Patient understands and agrees to the procedure. I also reviewed the risks and use of sedation, patient understands and consent obtained.
[2020-12-22] MEDS ORDERED: MIDAZOLAM HCL 5 MG/ML 1 ML VIAL ONE (13:41)
[2020-12-22] MEDS ORDERED: fentaNYL citrate 100 MCG/2 ML VIAL ONE (13:41)
--- NOTE | 2020-12-22 13:45 | Pre Anesthesia Assessment ---
Date of Service December 22, 2020 Pre Sedation Assessment Vital Signs Temp Pulse Resp BP Pulse Ox 12/22/20 12:26 36.7 C 65 16 175/85 H 98 Cardiovascular + bradycardic and + irregularly irregular Respiratory normal respiratory effort, lungs clear to auscultation Pre-Sedation Airway Assessment Smoking Status: Never smoker Short, Thick Neck: Yes Thyromental Distance: > or= 3.5 Finger Breadths Oral Cavity: + WNL Mallampati Class: III ASA: ASA3 NPO Status Date of Last Intake of Fluids: 12/22/20 Time of Last Intake of Fluids: 07:00 Date of Last Intake of Solid Food: 12/21/20 Procedure Planning Contraindications for Sedation: none Current Medications Reviewed: Yes Notes The planned sedation has been discussed with the patient. Informed Consent was obtained. I have identified the patient, determined the appropriateness of sedation and have assessed the patient immediately prior to the procedure. All medicine(s) and interventions are by my order.
--- NOTE | 2020-12-22 14:56 | Electrophysiology Report ---
Date of Service December 22, 2020 Electrophysiology Procedure Electrophysiology Procedure Report Preoperative diagnosis: Symptomatic bradycardia Permanent atrial fibrillation Postoperative diagnosis: Same Procedure: Single-chamber pacemaker implantation Surgeon: Parth Lerner MD Anesthesia: Local with sedation Estimated blood loss: 20 cc Complications: None Specimens: None Disposition: Hand Laster recovery: Procedure details: After obtaining informed consent for the procedure, the patient was brought to the laboratory and prepped and draped in the standard sterile manner. The left prepectoral region was anesthetized with 1% lidocaine local anesthetic and left axillary venipuncture was performed by percutaneous technique and a guidewire placed through the left subclavian vein into the superior vena cava. The area was further infiltrated with 1% lidocaine local anesthetic and a 5 cm incision was made parallel to the left clavicle and 2 cm below it and carried down to the anterior pectoralis fascia. A pacemaker pocket was formed by blunt dissection anterior to the pectoralis fascia and a vancomycin-soaked sponge was placed in the pocket. An 8 Polish Medtronic lead introducer was placed over the guidewire into the left subclavian vein, the dilator and guidewire were removed and a bipolar active fixation steroid tipped ventricular lead was advanced through the introducer into the superior vena cava. A guidewire was placed through the introducer and the introducer was stripped from the lead and guidewire. Using a curved stylette the ventricular lead was advanced through the right ventricular outflow tract into the pulmonary artery and then using a straight stylette was positioned in the mid interventricular septum. The screw was extended fixing the lead in position. Pacing and sensing thresholds were evaluated in bipolar configuration and are recorded on the implant data sheet. Diaphragmatic pacing was evaluated as noted on the data sheet. Once the lead was in position it was attached to the anterior pectoralis fascia using 2 sutures of 0 silk around the lead collar. The vancomycin-soaked sponge was removed from the pocket, hemostasis was obtained, the pocket was dusted with Saturnino to help coagulation, the pacemaker was attached to the lead and placed in the pocket with the lead coiled beneath it. The incision was closed with a running double subcutaneous closure of 3-0 Vicryl absorbable suture, followed by running subcuticular skin closure of 4-0 Vicryl absorbable suture. Bacitracin ointment was placed on the incision and a dressing applied. [facility] Electrophysiology codes Pacing Procedure 1: Pacin Insert/Replace Pacer V PG Moderate Sedation Codes Moderate Sedation Codes Procedure 1: Sedation/Anesthesia: 48949 Mod Sedation by the same physician;Init15 Min Child Age 5 & Up Procedure 2: Sedation/Anesthesia: 17404 Mod Sedation by the same physician; Ea [id number] Minutes
[2020-12-22] MEDS ORDERED: ACETAMINOPHEN 325 MG TAB PO PRN (15:01)
[2020-12-22] MEDS ORDERED: KETOROLAC TROMETHAMINE 10 MG TABLET PO PRN (15:01)
[2020-12-22] MEDS: DABIGATRAN ETEXILATE 75 MG CAP PO SCH (19:46)
[2020-12-22] MEDS ORDERED: METOPROLOL SUCC 50MG EXT REL TAB PO ONE (21:00)
[2020-12-22] MEDS ORDERED: CBD GUMMY PO SCH (21:00)
[2020-12-22] MEDS ORDERED: amLODIPine BESYLATE 5 MG TAB PO ONE (22:53)
--- NOTE | 2020-12-23 06:37 | Electrocardiogram Report ---
Test Reason : Blood Pressure : / mmHG Vent. Rate : 051 BPM Atrial Rate : 277 BPM P-R Int : 000 ms QRS Dur : 158 ms QT Int : 538 ms P-R-T Axes : 108 118 -66 degrees QTc Int : 495 ms Ventricular-paced rhythm Atrial flutter Abnormal ECG When compared with ECG of 10-NOV-2020 05:39, Electronic ventricular pacemaker is now Present Confirmed by Jimmie Sawyer ([id number]) on 12/23/2020 6:37:21 AM Referred By: Parth Lerner Confirmed By:Jimmie Sawyer
[2020-12-23] MEDS: DABIGATRAN ETEXILATE 75 MG CAP PO SCH (08:05)
[2020-12-23] MEDS ORDERED: FEXOFENADINE HCL 180 MG TAB PO SCH (09:00)
[2020-12-23] MEDS ORDERED: lisinopril 40 MG TAB PO SCH (09:00)
[2020-12-23] MEDS ORDERED: amLODIPine BESYLATE 5 MG TAB PO SCH (09:00)
[2020-12-23] MEDS ORDERED: ASPIRIN 81 MG ECTAB PO SCH (09:00)
[2020-12-23] MEDS ORDERED: ATORVASTATIN 40 MG TAB PO SCH (09:00)
--- NOTE | 2020-12-23 09:26 | Cardiology Progress Note ---
Date of Service December 23, 2020 Assessment & Plan (1) Status post placement of cardiac pacemaker: He is doing well post pacemaker implantation, the site looks good, the pacer is working well and he is stable for discharge. (2) Hypertension: His blood pressure has been markedly elevated since presentation yesterday. At home he is on amlodipine 2.5 mg daily and lisinopril 40 mg daily. He was not on beta-blockade due to bradycardia. That is not a restriction now, I did give him metoprolol yesterday as well as additional amlodipine however it did not bring his pressure down substantially. I am going to discharge him on increased amlodipine (5 mg daily) as well as addition of metoprolol succinate 50 mg daily. He is in for follow-up in 2 days, we will check his blood pressure then. Admission and Anticipated Discharge Date Admission Date: December 22, 2020 Subjective He is feeling well, minimal incisional discomfort. No chest discomfort, no shortness of breath. Physical Exam Physical Exam: The pacemaker site is clean and dry, no swelling or erythema. Lungs clear Cardiac rhythm is regular with no rub Results & Data ([facility]) Vital Signs (Past 12 Hours) Vital Signs Temp Pulse Pulse Resp BP BP Pulse Ox 12/23/20 07:21 36.6 C 54 L 19 180/90 H 95 12/23/20 03:30 36.6 C 53 L 18 151/90 H 95 12/23/20 01:19 174/83 H 12/22/20 23:21 36.6 C 53 L 16 184/92 H 96 12/22/20 22:00 60 18 160/82 H 95 12/22/20 21:30 53 L 20 170/78 H 95 Laboratory Results Postop ECG: Ventricular paced rhythm with underlying atrial fibrillation/flutter Telemetry: Appropriate pacemaker function heart rate in the 50 to 60 bpm range Chest x-ray: Good lead position, no pneumothorax Pacemaker evaluation: Excellent pacing and sensing characteristics PG Care Time/CCT Total # of Minutes Spent Total Time Spent with Patient: Total time spent is greater than 50% in coordination of care (as documented) at patient's floor/unit and/or counseling patient: Coding Level of Care Code 19247 Post Operative Follow-Up Diagnoses Status post placement of cardiac pacemaker Z95.0 Hypertension I10
--- NOTE | 2020-12-23 09:38 | XRay Report ---
XR chest 2V PA/lateral HISTORY: 70 years-old Male EXACT TIME ORDERED Evaluate for pneumothorax and l status post placement of a left subclavian pacer COMPARISON: 11/09/2020 TECHNIQUE: PA and lateral views of the chest FINDINGS: Limited lateral view secondary to left upper extremity positioning. Status post placement of a single lead left subclavian pacer. The lead appears to be intact. There is no postprocedural pneumothorax i dentified. Cardiomegaly with pulmonary vascular congestion redemonstrated. Unchanged interstitial coa rsening. No pleural effusion, airspace consolidation or overt pulmonary edema. Mild subcutaneous emph ysema and soft tissue swelling of the left chest wall. IMPRESSION: Status post placement of a single lead left subclavian pacer. No postprocedural pneumotho rax. ACT 112: Negative or not required by law. The above report was generated using voice recognition software. It may contain grammatical, syntax o r spelling errors. Electronically signed by: Marvin Velez M.D. 12/23/2020 9:37 AM
[2020-12-23] MEDS ORDERED: METOPROLOL SUCC 50MG EXT REL TAB PO STA (09:54)
--- NOTE | 2021-01-04 12:19 | Coding Letter ---
A supporting diagnosis is required for the test/procedure performed on this patient in order for us to be reimbursed by the patient's insurance. Please provide a supporting diagnosis for the following test/procedure listed below next to the test name along with your signature. *If there is no additional diagnosis for this patient that would support the following test/procedure please document that below next to the test/procedure. Test(s)/Procedure(s) that require a supporting diagnosis: * [id number] CARDIAC PACEMAKER DIAGNOSIS: DATE OF SERVICE: 12/22/20 Provider Signature: Date: Thank you Mateo Hagan [facility] Information Management Once completed, please kindly fax back to [phone] For questions please call [phone] NERI
--- NOTE | 2021-01-04 12:20 | Coding Query ---
A supporting diagnosis is required for the test/procedure performed on this patient in order for us to be reimbursed by the patient's insurance. Please provide a supporting diagnosis for the following test/procedure listed below next to the test name along with your signature. *If there is no additional diagnosis for this patient that would support the following test/procedure please document that below next to the test/procedure. Test(s)/Procedure(s) that require a supporting diagnosis: * [id number] CARDIAC PACEMAKER DIAGNOSIS: Symptomatic bradycardia, permanent atrial flutter DATE OF SERVICE: 12/22/20 Provider Signature: __Parth Lerner MD Date: _January 06, 2021 [address] [facility] Information Management Once completed, please kindly fax back to [phone] For questions please call [phone] NERI
--- NOTE | 2021-01-06 16:50 | Discharge Summary ---
Date of Service January 06, 2021 Admission HPI Per Admitting Provider This is a 70-year-old gentleman who has a long history of atrial fibrillation and flutter. His history dates back to at least 2000, at that time I believe he had atrial fibrillation requiring cardioversion and had electrophysiologic study at [facility] on September 20, 2001 but no ablation was performed. He may have failed flecainide at that time. He then had a right superior pulmonary vein isolation procedure performed at [facility] on January 25, 2002. This was repeated in May of 2002. Subsequently he had recurrence of atrial fibrillation and flutter and had an ablation July 11, 2006 at [facility] by Dr. Castro. He had repeat ablation at [facility] in July of 2008 and I believe was started on flecainide at that time. He had recurrent atrial flutter with cardioversion June 10, 2010 and again following knee surgery, the surgery was June 15, 2010. He had cardioversion performed at [facility] around June of 2010. He then did well until having recurrence documented by electrocardiography November 18, 2010. He was having significant fatigue and difficulty with exertion at that time. After discussing various options, including rate control, antiarrhythmics and potential repeat ablation, I scheduled him for a 24-hour Holter monitor to evaluate his heart rate. Although he was in atrial flutter in the office the monitor showed sinus rhythm throughout, evidently his atrial fibrillation was paroxysmal, however his symptoms did not change appreciably. It appeared some of his symptoms were due to inappropriate heart rate during exercise therefore we scheduled him for a stress test. This did indeed demonstrate chronotropic incompetence, he achieved only 61% of his predicted maximal heart rate at 10 mets. That was on metoprolol 50 mg daily, he reduced it to 25 mg and felt somewhat better and then we discontinued it altogether. He did feel much better after discontinuing metoprolol. A subsequent stress test during atrial flutter demonstrated a rapid heart rate (158 beats per minute) and a systolic blood pressure of 200 mmHg therefore Bystolic 5 mg daily was added to his regimen. His heart rate had been gradually dropping therefore I decreased his Bystolic and he felt somewhat better. His blood pressure remained well controlled as an outpatient therefore we discontinued his Bystolic on 03/04/2015. He has subsequently been started on lisinopril for blood pressure control and his heart rate has remained controlled or low and he is probably in permanent atrial fibrillation. He had been feeling quite well for a number of years and we have not done much with his medications and he has remained on anticoagulation for his atrial fibrillation but not on any rate control medications. An echocardiogram done on June 25, 2019 showed normal left ventricular function. He also had a Holter monitor performed on November 27, 2019. The heart rate ranged from minimum of 34 bpm at 4 AM to a maximum of 78 bpm at 4 PM with an average of only 50 bpm. For the most part throughout the recording his heart rate stabilizes at right around 50 bpm or just under based on the heart rate trend. He continued to be very active, he remained on Pradaxa (although he admits he may have missed a dose 1 or 2 at times) and was feeling well during the day on November 09, 2020, having played 18 holes of golf and taken a long walk with no sympt oms identified. He was watching TV on the evening of 11/09/2020 when he suddenly lost vision to the right side. Evaluation at the hospital showed a left occipital stroke, as well as a less than 50% left carotid stenosis but no other vascular abnormality. This was felt to probably represent a cardioembolic stroke and he recovered quite quickly from the event with only very minor residual effect. An echocardiogram done November 10, 2020 showed normal left ventricular systolic function with an ejection fraction of 60 to 65%, moderate concentric left ventricular hypertrophy and mild mitral regurgitation. He was discharged on November 10, 2020 on Pradaxa 150 mg twice daily as well as the addition of aspirin 81 mg daily. During that admission he was noted to be relatively bradycardic with a heart rate averaging around 50 bpm with no very slow or fast heart rates. A Holter monitor however was done on November 18, 2020 and showed a heart rate range from 24 to 82 bpm with an average of 42. There was a pause of 3.3 seconds. He is therefore undergoing pacemaker implantation. Admission Exam Per Admitting Provider Constitutional: Alert, cooperative and in no distress. HEENT: Unremarkable other than reported right visual field loss. Neck: No jugular venous distention, carotid pulses are irregular but otherwise normal and equal bilaterally without bruits. Pulmonary: Clear to auscultation bilaterally. Cardiac: Irregular slow rhythm with no murmur, gallop or rub. Abdomen: Soft, nontender with normal bowel sounds. Extremities: No edema. Distal pulses intact. Neurologic: No focal findings other than reporting right visual field loss. Gait was not tested. Skin: No rash, ecchymoses or petechiae. Principal Diagnosis Symptomatic bradycardia Discharge Exam The pacemaker site is clean and dry, no swelling or erythema. Lungs clear Cardiac rhythm is regular with no rub Discharge Data Allergies Allergy/AdvReac Type Severity Reaction Status Date / Time No Known Allergies Allergy Verified 11/12/20 10:23 Procedures Performed Operation Date: 12/22/20 13:00 Actual Procedures p Pacer with Ventricular Lead - Parth Lerner MD Ordered Studies 12/22/20 06:36 CL Cath Imgs for PACS use only Routine Hospital Course (1) Status post placement of cardiac pacemaker: A pacemaker was placed on the day of admission, that procedure was uneventful and he was monitored overnight. There were no complications and is stable for discharge. Total Time Total Time Spent Total Time Spent (In Minutes): 35 Discharge Plan Discharge Items Patient Disposition: Home - Self-Care Reason For Visit: SCP Discharge Diagnosis: Pacemaker implantation Activity: Per Instructions section Lifting: Gradually increase as tolerated Bathing: Keep incision dry Exercise/Sports: Gradually increase as tolerated Driving/Machine Use: No limitations Non-emergency contact: Primary Care Provider Call non-emergency contact if: your symptoms worsen Follow-up/Referrals: Parth Lerner MD [Physician] - 12/25/20 10:00 am Salvador Salinas [Primary Care Provider] - 12/28/20 3:30 pm Diet: Heart Healthy Addtl Attending Provider Instructions: ACTIVITY RECOMMENDATIONS: * Do not raise affected arm over head for 2 weeks. SPECIAL CARE INSTRUCTIONS: * If bleeding occurs, apply direct pressure to area for 5 minutes. * Call your doctor if you have severe pain, fever, drainage or bleeding at site. * Keep dressing on and dry for 48 hours then remove. * Keep any scheduled doctor's appointment. * Implant Card - hand held device with website information given. SKIN IRRITATION: * You may experience some redness and/or swelling in the area where radiation was administered. If any skin irritation occurs, please contact your family physician. FOLLOW UP VISIT: Keep any scheduled doctor appointments. Pending Studies at Discharge: No Stand-Alone Forms: [facility] [employer] Medications and DC Order Prescriptions: New amlodipine 5 mg tablet 5 mg PO DAILY Qty: 30 RF: 5 metoprolol succinate 50 mg tablet extended release 24 hr 50 mg PO DAILY Qty: 30 RF: 5 Continued Pradaxa 150 mg capsule 150 mg PO BID Qty: 180 RF: 3 atorvastatin 40 mg tablet 40 mg PO DAILY Qty: 90 RF: 3 fexofenadine 180 mg Tablet 180 mg PO QAM RF: 0 albuterol sulfate [ProAir HFA] 90 mcg/actuation Hfa Aerosol Inhaler 2 puff INHALATION QID PRN (Reason: SHORT OF BREATH) RF: 0 Cbd Gummy 1 tab PO BID RF: 0 lisinopril 40 mg tablet 40 mg PO DAILY RF: 0 fluticasone propion-salmeterol [Advair Diskus] 250-50 mcg/dose blister with device 1 ea INHALATION UD PRN (Reason: Shortness Of Breath Or Wheezing) RF: 0 aspirin 81 mg tablet,delayed release (DR/EC) 81 mg PO DAILY Qty: 30 RF: 0 Discontinued amlodipine 2.5 mg tablet 2.5 mg PO DAILY RF: 0 Discharge Orders: Discharge Order (Routine); Ordered 12/23/20 Ordered By: Parth Lerner Admission Data Admit Date/Time: 12/22/20 14:23 Attending Provider: Parth Lerner Admit Provider: Parth Lerner Primary Care Provider: Salvador Salinas Other Interventions: Discharge Summary Assessment (RN) Last Done: 12/23/20 09:58 Coding Level of Care Code 45461 OBS Care - Discharge Diagnoses Status post placement of cardiac pacemaker Z95.0
== END 2020-12-23 11:01 | disposition home or self-care (01) ==
LOC: 2S 12:11 → EP 12:11
DX: Z86.73 Personal history of transient ischemic attack (TIA), and cerebral infarction without residual deficits; Z79.01 Long term (current) use of anticoagulants; I10 Essential (primary) hypertension; Z79.899 Other long term (current) drug therapy; E78.5 Hyperlipidemia, unspecified; I45.89 Other specified conduction disorders; I65.22 Occlusion and stenosis of left carotid artery; I69.398 Other sequelae of cerebral infarction; I48.21 Permanent atrial fibrillation; R00.1 Bradycardia, unspecified; K21.9 Gastro-esophageal reflux disease without esophagitis; H53.461 Homonymous bilateral field defects, right side; I34.0 Nonrheumatic mitral (valve) insufficiency; Z20.822 Contact with and (suspected) exposure to COVID-19; J45.909 Unspecified asthma, uncomplicated

== ENCOUNTER 2022-09-13 08:14 | Observation (INO) ==
--- NOTE | 2022-09-08 09:21 | Anesthesiology Consultation ---
Date of Service September 08, 2022 Assessment & Plan (1) Encounter for pre-operative examination: Plan - check CBC with diff and BMP STAT am DOS. - pacemaker report not available, case previously discussed with Dr. Wilkerson who advised patient can proceed at current status given EP note as below including notation on pacemaker. - Biotronik pacemaker. - s/p open umbilical hernia repair 07/26/22 LMA#5. - cardiology 08/04/22: "...hx of recurrent stroke on noac, CHADS VASC of 5 HAS BLED of 5...s/p BO occlusion in March. JOHNNIE 45 days after showed good position of device and no leak...elected to keep pt on NOAC with BO occlusion given his high risk of stroke...can more safely undergo surgical procedures with holding NOAC as he is protected from the majority of stroke with BO occlusion...upcoming knee surgery. NOAC should be held as long as necessary for the procedure..." - EP 07/25/22: "... Occipital infarction: He has had significant recovery from his occipital stroke, and he has not had any additional symptoms...Atrial fibrillation: He has permanent atrial fibrillation with very little antegrade conduction (paced)...Anticoagulation: He is currently on Eliquis 5 mg twice a day and aspirin 81 mg daily. Given his stroke history while adequately anticoagulated, even with a watchman it may be safer to continue anticoagulation for now. I recommend leaving him on Eliquis although this could be interrupted for surgery...Single-chamber pacemaker: His pacemaker is working very well at the moment, he has excellent pacing and sensing characteristics and excellent battery voltage. His heart rate profile shows a very appropriate heart rate response...planning umbilical hernia surgery July 26, 2021, it would be safe to discontinue Eliquis now and resume after surgery. I do not see any addit ional testing that is needed prior to surgery..." - COVID screening: Per tower erector on 09/07/2022: Travel screen-returned from [facility] 2 wks ago, no known COVID-19 positive contacts or current COVID-19 related symptoms in past 2 weeks. To surgeon's discretion if preop COVID testing is needed. Chart Review Chart Review: Acceptable Risk for Surgery and Patient NOT seen in Pre Admission Testing History Surgery Operation Date: 09/13/22 10:20 Proposed Procedures p Left Knee Arthroscopy Partial Medial Meniscectomy - García Doherty MD Height/Weight Height: 5 ft 11 in Weight: 99.79 kg Allergies Allergy/AdvReac Type Severity Reaction Status Date / Time No Known Allergies Allergy Verified 09/07/22 07:56 Medications Home Medications Medication Instructions Recorded Confirmed Last Taken albuterol sulfate 90 mcg/actuation 2 puff inhalation QID PRN SHORT OF 12/25/18 09/07/22 07/19/22 09:30 aerosol inhaler (ProAir HFA) BREATH fexofenadine 180 mg tablet 180 mg PO QAM 12/25/18 09/07/22 07/24/22 08:00 lisinopril 40 mg tablet 40 mg PO DAILY 11/09/20 09/07/22 07/24/22 08:00 aspirin 81 mg tablet,delayed 81 mg PO DAILY #30 tabs 11/10/20 09/07/22 07/24/22 08:00 release fluticasone 500 mcg-salmeterol 50 1 inh inhalation DAILY PRN sob 11/29/21 09/07/22 07/24/22 08:00 mcg/dose blistr powdr for inhalation (Advair Diskus) amlodipine 5 mg tablet 5 mg PO DAILY #90 tabs 01/06/22 09/07/22 07/24/22 08:00 metoprolol succinate 50 mg 50 mg PO DAILY #90 tabs 02/28/22 09/07/22 07/24/22 08:00 tablet,extended release 24 hr montelukast 10 mg tablet 10 mg PO HS 04/15/22 09/07/22 07/24/22 08:00 multivitamin no.34-folic acid 1 1 tab PO QAM 04/15/22 09/07/22 Unknown mg-NADH 5 cp-pohuiaoiiz-22 mg tablet pantoprazole 40 mg tablet,delayed 40 mg PO QAM 04/15/22 09/07/22 07/26/22 05:00 release rosuvastatin 20 mg tablet 20 mg PO HS 04/15/22 09/07/22 07/24/22 08:00 amoxicillin 500 mg capsule 2,000 mg PO ONCE SBE prophylaxis 05/04/22 09/07/22 Unknown #4 caps apixaban 5 mg tablet (Eliquis) 5 mg PO BID 09/07/22 Unknown Past Medical History Medical History (Updated 09/08/22 @ 09:19 by Winsome Antonio PA-C) Asthma Atrial fibrillation Cardiac pacemaker Biotronik, follows with OR- last checked 07/2022 Carotid stenosis Bilateral carotid bulb mixed atherosclerotic plaque but no surgical grade stenosis on CTA 11/02/21 Chronic back pain Chronic sinusitis GERD (gastroesophageal reflux disease) History of blood transfusion 2010 History of cardioversion "SEVERAL" (FOLLOWS WITH DR. SHAW) History of COVID-19 03/2022. mild cold/flu like symptoms Hyperlipidemia Hypertension On anticoagulant therapy Presence of Watchman left atrial appendage closure device placed in March 2022 at [facility]. follows with Dr Espinal, [facility] electrophysiology. Stroke November 02, 2021. bilateral occipital lobe infarction. Follows with Dr Mcadams. 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 Transient ischemic attack (TIA) 2009 Past Family History Family History Father Black lung Mother Myocardial infarction Cancer Other No significant family history Past Surgical History Surgical History H/O umbilical hernia repair (07/26/22) Open Umbilical Hernia Repair (Not Applicable) - Aristides Robb DO History of adenoidectomy History of cardiac radiofrequency ablation X 4 (LAST PROCEDURE AT [place] 2009) History of colonoscopy History of endoscopic sinus surgery X 2 History of nasal septoplasty History of tonsillectomy History of tooth extraction History of total hip arthroplasty LEFT History of total knee replacement RT S/P cardiac pacemaker procedure placed at [facility] 12/2020. remotely checked nightly, unsure when last at cardiac office. S/P epidural steroid injection Status post placement of cardiac pacemaker Status post surgery Watchman device placed at [facility] in March 2023 Social History Smoking Status: Never smoker Do You Dip or Chew Tobacco: No Hx Alcohol Use: No Alcohol type: wine alcohol intake frequency: a few times a week Hx Substance Use: No substance use type: does not use Substance Use Type Other:: CBD GUMMY BID Testing Electrocardiogram Date: 05/03/22 Ventricular paced rhythm, rate 74 bpm Chest X-Ray Date: 07/25/22 A single lead cardiac pacemaker partially obscures the left upper chest. A 3 cm closure device projects over the left heart border. This is greater than 4 cm away from the lead on both projections. The heart is enlarged. The pulmonary vasculature is noncongested. The lungs and pleural spaces are clear noting mild bibasilar scarring/atelectasis. There is no pneumothorax. The skeletal structures are osteopenic. The bony thorax appears intact. IMPRESSION: 1. Cardiomegaly and cardiac pacemaker as above. There is no radiographic evidence of congestive failure. 2. There is no airspace consolidation or pleural effusion. Echocardiogram Date: 03/29/22 JOHNNIE EF 55-60% Biatrial dilation Left atrial appendage is free of thrombus formation BO ostium was relatively round. Maximum ostial dimension was 23.5 mm; maximum usable BO depth was 31.3 mm No significant valvular abnormality Successful deployment of a 31 mm Watchman FLX device in the BO Trivial pericardial effusion Other Testing Brain MRI 12/10/21 1. No acute intracranial findings. 2. Expected evolution of bilateral occipital lobe infarcts, now chronic, with hemosiderin deposition. 3. No intracranial mass or pathologic enhancement. 4. Old small right frontal lobe infarct. Head CT 11/02/21 Background small vessel disease and old focal cortical infarcts in the right parietal and left occipital lobes No evidence of acute intracranial pathology CT angio aortic arch and carotid 11/02/21 Bilateral carotid bulb mixed atherosclerotic plaque but no surgical grade stenosis
[~2022-09-13 08:14] MED LIST changes: -ALBU1AER9 INH; -ALL180 PO; -ASMTWH INH; -ATOR10TA82 PO; -BYS/5 PO; -DABI150C PO; -GABA-113 PO; -GLUC1TAB44 PO; +LACTATED RINGER'S 1,000 ML IV SCH; +LR 15ML/HR IV SCH; -MONT1TAB3 PO; -PRT/20 PO; +ceFAZolin 2000MG 2,000 MG/15 ML SYR IV SCH
[2022-09-13 08:49] LABS: Basophils # (auto) 0.08 K/uL (0-0.2); Hematocrit (blood only) 45.6 % (42.0-52.0); Immature Granulocytes # (auto) 0.02 K/uL (0.01-0.20); Immature Granulocytes % (auto) 0.3 %; Lymphocytes # (auto) 1.65 K/uL (1.2-3.4); Lymphocytes % (auto) 20.7 %; Mean Corpuscular Hemoglobin 28.2 pg (25.0-34.0); Mean Corpuscular Hgb Conc 32.9 g/dL (32.0-36.0); Mean Corpuscular Volume 85.7 fL (80.0-100.0); Mean Platelet Volume 10.1 fL (9.4-12.4); Monocytes % (auto) 11.3 %; Neutrophils # (auto) 4.54 K/uL (1.40-6.50); Neutrophils % (auto) 56.7 %; Platelet Count 201 K/uL (130-400); RDW Coefficient of Variation 13.7 % (11.5-14.5); RDW Standard Deviation 42.5 fL (36.4-46.3); Red Blood Count 5.32 M/uL (4.70-6.10); White Blood Count 7.99 K/ul (4.8-10.8)
[2022-09-13] MEDS ORDERED: fentaNYL citrate PF 100 MCG/2 ML VIAL IV PRN (09:00)
[2022-09-13] MEDS ORDERED: ONDANSETRON INJ 2 MG/ML 2 ML VIAL IV PRN ×2 (09:00→14:03)
[2022-09-13] MEDS ORDERED: ePHEDrine sulfate 50 MG/ML AMP IV PRN (09:00)
[2022-09-13] MEDS ORDERED: ATROPINE SULFATE 0.1 MG/ML 10ML SYR IV PRN (09:00)
[2022-09-13 09:14] LABS: BUN Creatinine Ratio 15.6 (10-20); Calcium 9.3 mg/dl (8.6-10.3); Creatinine Clr Calc Pharmacy 66.8 ml/min; Est GFR (African American) 68.7 ml/min; Est GFR (Non-African American) 59.3 ml/min; Potassium 4.2 mmol/L (3.5-5.1)
[2022-09-13] MEDS ORDERED: LIDOCAINE 2% MPF LOCAL 5 ML VIAL ONE (10:02)
[2022-09-13] MEDS ORDERED: ONDANSETRON INJ 2 MG/ML 2 ML VIAL ONE (10:02)
[2022-09-13] MEDS ORDERED: PROPOFOL IV EMULSION 10 MG/ML 20 ML VIAL IV ONE (10:02)
[2022-09-13] MEDS ORDERED: MIDAZOLAM HCL 1 MG/ML 2ML VIAL ONE (10:03)
[2022-09-13] MEDS ORDERED: fentaNYL citrate PF 100 MCG/2 ML VIAL ONE (10:03)
--- NOTE | 2022-09-13 10:24 | History & Physical Bridge Note ---
Date of Service September 13, 2022 History & Physical Bridge Note I have examined the patient, reviewed the History & Physical and in the interval since the performance of the History & Physical I have noted the following changes of clinical significance: no changes noted
[2022-09-13] MEDS ORDERED: LIDOCAINE/EPINEPHRINE 1% 20 ML VIAL ONE (11:03)
[2022-09-13] MEDS ORDERED: EpINEphrine HCL INJ 1 MG/ML 1ML SYRINGE ONE (11:19)
[2022-09-13] MEDS ORDERED: DEXAMETHASONE SOD INJ 4 MG/ML VIAL ONE (11:35)
[2022-09-13] MEDS ORDERED: ePHEDrine sulfate 50 MG/ML SYR ONE (11:43)
--- NOTE | 2022-09-13 12:25 | Operative Report ---
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 I identified the patient and participated in the time-out.: Yes Procedure Operation Date: 09/13/22 10:10 Actual Procedures p Left Knee Arthroscopy Partial Medial and Lateral Meniscectomy, Chondroplasty(Left) - García Doherty MD Surgeon García Doherty MD Retail Sales Director Linda Bennett no resident or fellow available Estimated Blood Loss 3 Findings Consistent with Post-Op Diagnosis Specimens None Anesthesia Type General Regional Complications none Disposition Accompanied Patient To Recovery: No Disposition: Recovery Room Indications Patient is 72 years old. Left knee pain refractory to nonsurgical treatment. X-rays show a reasonable cartilage space. MRI shows chondrosis with a complex medial meniscus tear. He is taken to surgery for debridement. Description of Procedure Informed consent was obtained. The patient was identified. The operative site was identified as the left knee which I marked with my initials. A preop dose of IV antibiotics was given. The patient was positioned supine on the operating room table. A preoperative surgical timeout was performed. The examination under anesthesia demonstrated range of motion 0 to 125 degrees of flexion with intact cruciate and collateral ligaments. No effusion.. A lateral post was used for stressing the knee. No tourniquet was applied. DVT prophylaxis intraoperatively with foot pumps A laryngeal mask anesthetic was administered. Prior to start of the operation 1% lidocaine with epinephrine was injected into the knee joint, fat pad and portal sites. Care was taken to not torque the left hip as it has a total hip in place. He is on chronic oral anticoagulation which has been stopped 48 hours preoperatively and will be resumed the morning after surgery. Inferolateral viewing portal superior lateral outflow portal and inferomedial working portals were established. Diagnostic arthroscopy was performed. There was no significant pathology in the suprapatellar pouch. The medial lateral gutters were unremarkable. There was grade 1 and 2 chondrosis of the patella mainly of the median ridge with no significant cartilage damage there. Minor chondroplasty performed. The retropatellar fat pad was resected along with the ligamentum mucosum and the. Synovial tissue. The trochlea was normal. The posteromedial and lateral compartments were unremarkable. The ACL and PCL were intact. The lateral compartments carefully evaluated with the leg and mid flexion and no downward pressure on the hip. When accessing the medial compartment a lateral post was used for stressing the knee. The MCL was perforated to improve access to the medial compartment. Back to the lateral compartment there was a complex degenerative tear of the meniscal root which extended laterally in the body. This was debrided with basket forceps and amount motorized shaver. I would say at least half of the root if not more remained intact. This was debrided back to a stable balance and well contoured rim. Just underneath this was an area about a centimeter in diameter of high-grade 3 chondrosis with some generalized deterioration and softening throughout the lateral tibial plateau. The lateral femoral condyle showed 2 x 3 area of grade 2 chondrosis with no areas much worse than that. The remainder the meniscus was intact and stable to probing. Popliteal hiatus intact. On the medial side of the knee there was a complex tear of the posterior horn of the meniscus with intrameniscal degeneration and mucoid degeneration There was a fragment flipped underneath the meniscus. The meniscus was debrided with basket forceps and the shaver. There was substantial horizontal cleavage component which required debridement of both flaps back near the meniscocapsular junction. The tear extended more medially on its inferior surface. Around the MCL this was back to the meniscocapsular junction. The unstable flaps were removed and likely half of the posterior portion of the meniscus was removed. The meniscal root remained intact. The tibia showed centralized diffuse grade 2 chondrosis and there was a small area underneath the meniscus tear about 4 mm in diameter of grade 4 chondrosis. There was a small area on the femur of grade 3 chondrosis about 5 mm in diameter and diffuse grade 2 chondrosis throughout. Chondroplasty performed there. The instruments were removed. Portals were closed with 4-0 nylon. A soft roll dressing was applied Xeroform 4 x 4's ABD and soft wrap. Patient was wake from anesthesia without difficulty and taken back to the recovery room in stable condition. There were no specimens or complications. Counts were correct and blood loss was estimated to be 3 cc. At the conclusion of the operation spoke to patient's informed her of my findings and postop instructions were given. She will be admitted to the hospital for observation. He has a history of strokes and is currently off his anticoagulation. This will be a plan to restart no sooner than 12 hours after surgery and likely first thing tomorrow morning. He may weight-bear as tolerated and will rehabilitated according to the chondroplasty/meniscectomy protocol. DVT prophylaxis intraoperatively with foot pumps. Postop early mobility mechanical devices and chemoprophylaxis. I attest to the content of the Intraoperative Record and any orders documented therein. Any exceptions are noted below.
--- NOTE | 2022-09-13 12:37 | Operative Report ---
Post Operative Report Pre & Post Diagnosis Operation Date: 09/13/22 10:10 Pre-Op Diagnosis: Left Knee Medial Meniscus Tear Post-Op Diagnosis: Left Knee Medial Meniscus Tear I identified the patient and participated in the time-out.: Yes Procedure Operation Date: 09/13/22 10:10 Actual Procedures p Left Knee Arthroscopy Partial Medial and Lateral Meniscectomy, Chondroplasty(Left) - García Doherty MD Surgeon García Doherty M.D. Homeland Security Program Specialist Linda Bennett no resident or fellow available Estimated Blood Loss 3 Findings Consistent with Post-Op Diagnosis medial and lateral meniscus tears chondrosis Specimens None Anesthesia Type General Description of Procedure Patient was taken to the operating room, placed under general anesthesia. Time out performed, prepped and draped in routine sterile fashion. I was present during the entire case, please see Dr. Doherty's operative report for further detail. Patient was awakened and taken to the recovery room in stable condition. I attest to the content of the Intraoperative Record and any orders documented therein. Any exceptions are noted below.
[2022-09-13] MEDS ORDERED: bisacodyL 10 MG SUPP PR PRN (14:03)
[2022-09-13] MEDS ORDERED: MAGNESIUM HYDROXIDE SUSP 30 ML UDC PO PRN (14:03)
[2022-09-13] MEDS ORDERED: NALOXONE HCL 0.4 MG/1 ML VIAL/CARP IV PRN (14:03)
[2022-09-13] MEDS ORDERED: ALBUTEROL HFA 8 GM INHALER INH PRN (14:03)
[2022-09-13] MEDS ORDERED: HYDROmorphone INJ 0.5 MG/0.5 ML SYR IV PRN (14:03)
[2022-09-13] MEDS ORDERED: TAMSULOSIN HCL 0.4 MG CAP PO PRN (14:03)
[2022-09-13] MEDS ORDERED: FLUTICASONE/VILANTEROL 200/25MCG 14 PUFFS/INHALER INH PRN (14:54)
--- NOTE | 2022-09-13 16:01 | Discharge Summary ---
Date of Service September 13, 2022 Discharge Data Procedures Performed Operation Date: 09/13/22 10:10 Actual Procedures p Left Knee Arthroscopy Partial Medial and Lateral Meniscectomy, Chondroplasty(Left) - García Doherty MD Hospital Course (1) S/P left knee arthroscopy: Patient was kept in observation overnight after undergoing an elective left knee arthroscopy and partial medial meniscectomy and partial lateral meniscectomy with Dr. Doherty on September 13, 2022. His surgery was performed with general anesthesia. He tolerated the procedure well without any intraoperative complications. He was given 2 g of IV Ancef which was continued for 24 hours after his surgery. His Eliquis was held preoperatively and but will be resumed on postoperative day 1 at 6 AM. He is allowed to weight-bear as tolerated with the assistance of a walker or crutches. Dressings were applied to his right knee which were left in place. He was given a regular diet after his procedure. He was given Independence to help with postoperative pain. He also had IV Dilaudid available to be used as needed. Recommended ice on the knee as needed for pain and swelling. A PT consult was placed. He did well out of bed. He was deemed safe for discharge. He was discharged to his home with his in stable condition on September 14, 2022.
[2022-09-13] MEDS: SODIUM CHLORIDE 0.9% 1000ML 1,000 ML IV SCH (16:21)
[2022-09-13] MEDS: ceFAZolin 2000MG 2,000 MG/15 ML SYR IV SCH (17:10)
--- NOTE | 2022-09-13 17:27 | Progress Notes ---
DATE OF SERVICE: 09/13/2022 Resting comfortably in bed. No problems reported. Pain is well controlled. He is afebrile with stable vital signs. Dressing clean, dry and intact. DP and PT pulses are both 1 + with normal sensation in the foot and 5/5 ankle and toe plantar flexion, dorsiflexion and eversion. He is status post a left knee arthroscopy with partial medial and lateral meniscectomy and chondropla sty. He has a history of cardiac abnormalities and has a pacemaker and has also had stroke. He is o n chronic anticoagulation. We discussed the surgical findings. Reviewed routine postop pain management. He can be up weightbea ring as tolerated. We went over some simple exercises. We will have PT tomorrow and we will reevalu ate his suitability for discharge at that time. Blood thinner, Eliquis will be started in the mornin g. No issues with visual changes, chest pains. He has normal facial expression, is able to move all 4 extremities. Job ID: [id number]
[2022-09-13] MEDS: DOCUSATE SODIUM 100 MG CAP PO SCH (19:28)
[2022-09-13] MEDS ORDERED: MONTELUKAST SODIUM 10 MG TABLET PO SCH (21:00)
[2022-09-13] MEDS ORDERED: ROSUVASTATIN CALCIUM 20 MG TAB PO SCH (21:00)
[2022-09-14] MEDS: HYDROCODONE/ACETAMOPHEN 5/325MG TAB PO PRN ×2 (01:06→07:53)
[2022-09-14] MEDS: ceFAZolin 2000MG 2,000 MG/15 ML SYR IV SCH (01:07)
--- NOTE | 2022-09-14 06:56 | Anesthesiology Progress Note ---
Date of Service September 13, 2022 Anesthesia Post Procedure Vital Signs Vital Signs: Temp Pulse Pulse Resp BP BP Pulse Ox 09/14/22 03:20 98.1 F 69 16 160/82 H 95 09/13/22 22:45 97.5 F L 62 16 151/77 H 96 09/13/22 19:31 97.5 F L 62 18 129/72 95 09/13/22 16:00 97.7 F 62 15 133/75 95 09/13/22 15:00 57 L 19 119/67 95 09/13/22 14:30 61 20 128/79 96 09/13/22 14:00 59 L 17 125/79 94 09/13/22 13:45 67 18 130/80 97 09/13/22 13:30 59 L 19 131/78 95 09/13/22 13:15 58 L 18 128/80 96 09/13/22 13:00 97.3 F L 58 L 20 118/75 95 09/13/22 12:50 58 L 20 120/79 96 09/13/22 12:40 58 L 18 147/78 H 99 09/13/22 12:30 65 22 149/82 H 98 09/13/22 12:24 97.2 F L 58 L 16 148/82 H 96 09/13/22 09:00 97.7 F 53 L 20 147/90 H 93 O2 Del Method O2 Flow Rate 09/14/22 03:20 Room Air 09/13/22 22:45 Room Air 09/13/22 19:31 Room Air 09/13/22 16:00 Room Air 09/13/22 15:00 Room Air 09/13/22 14:30 Room Air 09/13/22 14:00 Room Air 09/13/22 13:45 Room Air 09/13/22 13:30 Room Air 09/13/22 13:15 Room Air 09/13/22 13:00 Room Air 09/13/22 12:50 Room Air 09/13/22 12:40 Oxymask 4 09/13/22 12:30 Oxymask 8 09/13/22 12:24 Oxymask 8 09/13/22 09:00 Room Air Pain Intensity Left Knee: Pain Intensity: 1 Transfer of Care Handoff Completed per policy Notes Mental Status: alert / awake / arousable and participated in evaluation Patient Amnestic to Procedure: Yes Nausea / Vomiting: adequately controlled Pain: adequately controlled Airway Patency, RR, SpO2: stable & adequate BP & HR: stable & adequate Hydration State: stable & adequate Anesthetic Complications: no major complications apparent and Pt Satisfied with anesthetic care
[2022-09-14] MEDS: SODIUM CHLORIDE 0.9% 1000ML 1,000 ML IV SCH (07:21)
[2022-09-14] MEDS: DOCUSATE SODIUM 100 MG CAP PO SCH (07:48)
[2022-09-14] MEDS ORDERED: CEROVITE ADV FORMULA TAB PO SCH (09:00)
[2022-09-14] MEDS ORDERED: PANTOprazole 40 MG TAB PO SCH (09:00)
[2022-09-14] MEDS ORDERED: METOPROLOL SUCC 50MG EXT REL TAB PO SCH (09:00)
[2022-09-14] MEDS ORDERED: lisinopril 40 MG TAB PO SCH (09:00)
[2022-09-14] MEDS ORDERED: ASPIRIN 81 MG ECTAB PO SCH (09:00)
[2022-09-14] MEDS ORDERED: APIXABAN 5 MG TABLET PO SCH (09:00)
[2022-09-14] MEDS ORDERED: FEXOFENADINE HCL 180 MG TAB PO SCH (09:00)
[2022-09-14] MEDS ORDERED: amLODIPine BESYLATE 5 MG TAB PO SCH (09:00)
--- NOTE | 2022-09-14 09:07 | Orthopedic Progress Note ---
Date of Service September 14, 2022 Assessment & Plan (1) S/P left knee arthroscopy: Plan: POD 1 - left knee arthroscopy, PMM, PLM, chondroplasty with Dr. Doherty WBAT LLE Full ROM as tolerated PT today Walker assistance Eliquis resumed this morning. Pain medication as prescribed. Plan for discharge to home today with outpatient PT on 09/16/22. Discharge instructions reveiewed. All questions answered. Will discuss findings with Dr. Doherty Admission and Anticipated Discharge Date Admission Date: September 13, 2022 Subjective Patient doing well. no complaints of pain in left knee. Has been out of bed a couple of times. Using walker. Denies chest pain, shortness of breath. Tolerating regular diet. no nausea, vomiting. Physical Exam Musculoskeletal: Left lower extremity dressings clean, dry and intact. [place] in place. Full strength LLE with ankle ROM. Able to independently SLR LLE. Dorsalis pedis pulses 1+. Distal sensation normal. No calf tenderness with palpation, calf supple. Tolerates gentle active flexion of left knee to 50-60 degrees - limited due to dressings, full extension. Full ROM left hip without discomfort. Results & Data Vital Signs (Past 12 Hours) Vital Signs Temp Pulse Pulse Resp BP Pulse Ox O2 Del Method 09/14/22 07:22 36.7 C 70 16 137/82 96 Room Air 09/14/22 03:20 36.7 C 69 16 160/82 H 95 Room Air 09/13/22 22:45 36.4 C L 62 16 151/77 H 96 Room Air
== END 2022-09-14 12:58 | disposition home or self-care (01) ==
LOC: ASU 08:14 → PACUINP 08:14 → 3N 16:11